=== PATIENT | female | born 1940 | race Caucasian/White ===

== ENCOUNTER → 2018-08-11 13:34 | Outpatient (BNVA) | payer MEDICARE, SELFPAY | PROVIDERS: PCP Emergency Medicine; Visit Provider Nurse Practitioner Adult Health | DX: G56.03 Carpal tunnel syndrome, bilateral upper limbs (principal); G56.23 Lesion of ulnar nerve, bilateral upper limbs; I10 Essential (primary) hypertension | CPT/HCPCS: 95911; 99203; 99214 ==

== ENCOUNTER → 2019-03-30 10:46 | Outpatient (BNVA) | payer OTHER, SELFPAY | PROVIDERS: PCP Emergency Medicine; Referring Provider Emergency Medicine; Visit Provider Orthopaedic Surgery | DX: G56.00 Carpal tunnel syndrome, unspecified upper limb (principal); G56.01 Carpal tunnel syndrome, right upper limb; M25.511 Pain in right shoulder; G89.29 Other chronic pain; I10 Essential (primary) hypertension | CPT/HCPCS: 99201; 99213 ==

== ENCOUNTER 2019-04-06 11:33 | Day surgery (SDC) | payer OTHER, SELFPAY ==
[2019-04-06 12:08] VITALS: BP 146/65; PULSE 64; RESP 16; TEMP 36.1; O2SAT 95
[2019-04-06] MEDS: Lidocaine 2% Multi-Dose 50 ML VIAL (13:16)
--- NOTE | 2019-04-06 13:48 | W.PM.DSUDISC ---
Discharge Plan Disposition Patient Disposition: HOME Condition: Improving Discharge Details Attending Provider: Demian Galdamez Primary Care Provider: Sonny Thompson Home Meds and New Rx's Prescriptions: New hydrocodone-acetaminophen 5-325 mg Tablet 1 - 2 tab PO Q4H PRN PRN (Reason: Pain) Qty: 18 RF: 0 No Action hydrochlorothiazide 25 mg tablet 25 mg PO DAILY Qty: 90 RF: 4 losartan 50 mg tablet 50 mg PO DAILY Qty: 90 RF: 3 ranitidine HCl 150 mg capsule 150 mg PO BID Qty: 180 RF: 3 acetaminophen [Tylenol Extra Strength] 500 MG tablet 2 tab PO TID PRNRF: 0 acetaminophen [Tylenol Arthritis] 650 MG tablet extended release 1 tab PO DAILY PRNRF: 0 SYSTANE 0.3-0.4% EYE DROPS 5 ML drops 1 drp Ophthalmic PRN RF: 0 clobetasol [Temovate] 30 GM cream 1 brenton Topical BID Qty: 3 RF: 4 fexofenadine 180 MG tablet 180 mg PO daily prn RF: 0 hydrocortisone [Preparation H Hydrocortisone] 26 GM cream 26 gm Topical daily prn RF: 0 lidocaine 5 GM cream 1 gm Topical BID Qty: 1 RF: 0 ascorbate calcium 500 MG tablet 500 mg PO DAILY RF: 0 cholecalciferol (vitamin D3) 1,000 unit capsule 1,000 unit PO DAILY Qty: 90 RF: 12 Discharge Instructions Additional Instructions: Keep your right hand elevated above heart level as much as possible for the next 48 hours. Exercise your fingers and thumb as comfort allows. You may loosen your wrist brace and/or the underlying emil bandage if they feel too tight. Expect some bloody drainage on the the underlying gauze bandages. For showering tomorrow, you may cover your bandages with a plastic bag and a rubber band about the forearm to keep them dry. On , 04/08/19, you may remove all of your bandages and get your stitches wet in the shower with soap and water. Gently pat the stitches dry and cover them with gauze, or extra large bandaids, or a clean fingerless cotton glove. Resume normal use as tolerated. You may go without the wrist brace as soon as you are comfrortable. Continue to exercise your fingers and thumb. Take your usual medications as before. Take tylenol , advil or aleve for milder pain. Tylenol, may be taken at the same time as aleve or at the same time as advil as they are metabolized differently and are not cross toxic. For more serious pain, take norco (hydrocodone 5/325mg) 1-2 every 4 hours. [facility] regulations limit the amount of norco to 18 tablets. Follow-up with Dr. Galdamez's office in 1 week for stitch removal. Stand Alone Forms: Reddy Kuhn (DARIANU) Equipment/Supplies: Brace Activity:: Elevate Remove Dressings/Wound Care:: 48 hours Shower/Bathe:: 48 hours Diet:: As Tolerated Discharge Orders Discharge Orders: Discharge Order (Routine); Ordered 04/06/19 Ordered By: Demian Galdamez DS: Diagnosis Discharge Diagnosis (1) Right carpal tunnel syndrome: Status: Acute
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
== END 2019-04-06 14:28 | disposition home or self-care (01) ==
PROVIDERS: PCP Emergency Medicine; Visit Provider Orthopaedic Surgery
PROC: (CPT 64721; principal; 2019-04-06 13:00)
DX: G56.01 Carpal tunnel syndrome, right upper limb (principal); M79.7 Fibromyalgia
CPT/HCPCS: 64721; L3908

== ENCOUNTER → 2019-04-16 12:42 | Outpatient (BNVA) | payer OTHER, SELFPAY | PROVIDERS: PCP Emergency Medicine; Referring Provider Emergency Medicine; Visit Provider Physical Therapy Assistant | DX: Z48.02 Encounter for removal of sutures (principal); Z47.89 Encounter for other orthopedic aftercare ==

== ENCOUNTER 2019-11-24 09:56 | Outpatient (CLI) | payer OTHER, SELFPAY ==
[2019-11-24 12:56] LABS: Anion Gap 9.3 mmol/L (3-11); BUN 22 mg/dL (7-18); CO2 30.7 mmol/L (21.0-32.0); CREATININE 1.02 mg/dL (0.55-1.02); Calcium 9.6 mg/dL (8.5-10.1); Chloride 102 mmol/L (98-107); Estimated GFR 52.28 (mL/min/1.73m2); Glucose 109 mg/dL (74-106); Potassium 3.5 mmol/L (3.5-5.1); Sodium 142 mmol/L (136-145)
== END 2019-11-24 10:16 ==
PROVIDERS: PCP Emergency Medicine; Visit Provider Emergency Medicine
DX: I10 Essential (primary) hypertension (principal)
CPT/HCPCS: 36415; 80048

== ENCOUNTER → 2019-12-07 10:08 | Outpatient (BNVA) | payer OTHER, SELFPAY | PROVIDERS: PCP Emergency Medicine; Referring Provider Emergency Medicine; Visit Provider Orthopaedic Surgery | DX: G56.01 Carpal tunnel syndrome, right upper limb (principal) | CPT/HCPCS: 99213 ==

== ENCOUNTER 2019-12-29 02:37 | Outpatient (CLI) | payer OTHER, SELFPAY ==
--- NOTE | 2019-12-29 10:52 | DI.MAMMO_ITS ---
EXAM: MAMMO SCREENING CLINICAL HISTORY: screening, Z12.39 TECHNIQUE: Mammograms were interpreted according to the usual protocol including computer analysis w [employer] CAD system, tomosynthesis and C-view imaging. COMPARISON: 2010 to 2016 FINDINGS: The breasts are composed of mainly fatty density , Breast Density category A. No suspicious masses or suspicious microcalcifications are seen. No skin thickening or abnormal axillary lymph nodes are seen. There has been no significant change from prior exams. IMPRESSION: Bi rads category 1, negative. Yearly screening mammography is recommended. Breast density category A, fatty density.
== END 2019-12-29 02:57 ==
PROVIDERS: PCP Emergency Medicine; Visit Provider Emergency Medicine
DX: Z12.31 Encounter for screening mammogram for malignant neoplasm of breast (principal)
CPT/HCPCS: 77063; 77067

== ENCOUNTER → 2020-04-12 09:33 | Outpatient (BNVA) | payer OTHER, SELFPAY | PROVIDERS: PCP Emergency Medicine; Referring Provider Emergency Medicine; Visit Provider Orthopaedic Surgery | DX: M79.601 Pain in right arm (principal); I10 Essential (primary) hypertension | CPT/HCPCS: 99214; L3809 ==

== ENCOUNTER → 2020-05-17 09:18 | Outpatient (BNVA) | payer OTHER, SELFPAY | PROVIDERS: PCP Emergency Medicine; Visit Provider Orthopaedic Surgery | DX: M79.601 Pain in right arm (principal); I10 Essential (primary) hypertension | CPT/HCPCS: 99213 ==

== ENCOUNTER 2020-06-28 11:09 | Outpatient (CLI) | payer OTHER, SELFPAY ==
[2020-06-28 12:27] LABS: Abs Immature Grans 0.04 10^3/uL (0.0-0.06); Absolute Basophil Count 0.05 10^3/uL (0.0-0.2); Absolute Eosinophil Count 0.11 10^3/uL (0.0-0.7); Absolute Lymphocyte Count 1.34 10^3/uL (1.2-3.4); Absolute Monocyte Count 0.59 10^3/uL (0.1-0.8); Absolute Neutrophil Count 4.44 10^3/uL (1.2-6.7); Basophils % 0.8; Eosinophils % 1.7; HGB 10.3 g/dL (11.2-15.7); Immature Grans % 0.6; Lymphocytes % 20.4; MCH 32.6 pg (27.0-33.0); MCHC 34.3 % (32.0-36.0); MCV 94.9 fL (80-95); MPV 10.4 fL (8.0-11.0); Neutrophils % 67.5; Nucleated RBC 0 %; Platelet Count 226 10^3/uL (130-400); RBC 3.16 10^6/uL (3.93-5.22); RDW-SD 41.2 fL; WBC 6.57 10^3/uL (4.4-10.8)
[2020-06-28 12:42] LABS: ALT 31 U/L (14-59); AST 17 U/L (15-37); Albumin 3.5 g/dL (3.4-5.0); Alkaline Phosphatase 47 U/L (46-116); Anion Gap 9.4 mmol/L (3-11); BUN 20 mg/dL (7-18); Bilirubin, Total 0.5 mg/dL (0.2-1.0); CO2 24.6 mmol/L (21.0-32.0); CREATININE 1.11 mg/dL (0.55-1.02); Calcium 8.9 mg/dL (8.5-10.1); Chloride 106 mmol/L (98-107); Estimated GFR 47.29 (mL/min/1.73m2); Glucose 132 mg/dL (74-106); Potassium 3.3 mmol/L (3.5-5.1); Sodium 140 mmol/L (136-145); TSH 1.04 uIU/mL (0.36-3.74); Total Protein 6.9 g/dL (6.4-8.2)
[2020-06-28 12:46] LABS: Hemoglobin A1C 5.8 % (<5.7)
== END 2020-06-28 11:29 ==
PROVIDERS: PCP Emergency Medicine; Visit Provider Emergency Medicine
DX: E03.9 Hypothyroidism, unspecified (principal); E11.9 Type 2 diabetes mellitus without complications; R53.83 Other fatigue
CPT/HCPCS: 36415; 80053; 83036; 84443; 85025

== ENCOUNTER 2020-07-06 01:23 | Outpatient (CLI) | payer OTHER, SELFPAY ==
--- NOTE | 2020-07-06 07:15 | DI.CT_ITS ---
EXAM: CT ABDOMEN PELVIS W CLINICAL HISTORY: Anemia, abdominal pain,weight loss,R63.4,D64.9,R10.9 TECHNIQUE: COMPARISON: CT ABD PELVIS WITH CONTRAST from 05/01/2017 FINDINGS: CT examination of the abdomen and pelvis was performed with intravenous infusion of 100 cc of Omnipaq ue 350 and ingestion of dilute barium. Images obtained through the lung bases are unremarkable. Note is made of coronary artery calcificati on. The liver and spleen are unremarkable except for splenic hilar calcification, probable healed granulo matous disease. Gallbladder appears to been surgically removed. No biliary dilatation. Unremarkabl e appearance of the pancreas. The abdominal aorta is of normal diameter. There is a heavily calcified origin of the superior mesen teric artery which appears to have a stenosis in excess of 90 percent. The remainder of the vessel i s opacified. This presumably fills via collateral circulation. Adrenals and kidneys appear normal. No urinary tract calcification or obstruction. Unremarkable brenton earance of the urinary bladder. Appendix or appendiceal stump is unremarkable. No evidence of bowel obstruction. There is marked wall thickening of the sigmoid colon. There is a small gas in fluid collection adjac ent to the proximal sigmoid colon which may represent a small chronic diverticular abscess, mild demarcus colonic fat edema noted at this site. Senior Advisor structures grossly unremarkable for age. 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 RADIATION DOSE DELIVERED: 888.18mGy.cm Total DLP
[2020-07-06] MEDS: Omnipaque 350 MG/ML 100 ML BTL IV (09:30)
[2020-07-06] MEDS: Normal Saline - Diluent 50 ML VIAL IV (09:31)
[2020-07-06] MEDS: Normal Saline Flush 10 ML SYR IVP (09:32)
== END 2020-07-06 01:43 ==
PROVIDERS: PCP Emergency Medicine; Visit Provider Emergency Medicine
DX: R10.9 Unspecified abdominal pain (principal); R63.4 Abnormal weight loss; D64.9 Anemia, unspecified
CPT/HCPCS: 74177; J3490

== ENCOUNTER → 2020-07-10 14:47 | Outpatient (BNVA) | payer OTHER, SELFPAY | PROVIDERS: PCP Emergency Medicine; Referring Provider Emergency Medicine; Visit Provider Surgery | DX: K57.20 Diverticulitis of large intestine with perforation and abscess without bleeding (principal); D64.9 Anemia, unspecified; K63.5 Polyp of colon; I10 Essential (primary) hypertension; Z11.59 Encounter for screening for other viral diseases | CPT/HCPCS: 99214 ==

== ENCOUNTER 2020-07-28 02:13 | Outpatient (CLI) | payer OTHER, SELFPAY ==
[2020-07-29 20:23] LABS: COVID-19 RT-PCR Result NEGATIVE (Negative)
== END 2020-07-28 02:33 ==
PROVIDERS: PCP Emergency Medicine; Visit Provider Surgery
DX: Z11.59 Encounter for screening for other viral diseases (principal); Z01.818 Encounter for other preprocedural examination
CPT/HCPCS: U0003

== ENCOUNTER 2020-08-01 07:31 | Day surgery (SDC) | payer OTHER, SELFPAY ==
[2020-08-01 07:30] VITALS: BP 144/68; PULSE 70; RESP 18; TEMP 36.3; O2SAT 97
[2020-08-01] MEDS: Lactated Ringers 1,000 ML 80 ML IV (08:10)
--- NOTE | 2020-08-01 08:50 | STOM_PTH ---
PATIENT: Roselyn Hartley LOC: [facility] U#:[id number] AGE/SX: 80/F ROOM: RE08/01/[address]: Ainsley Dhaliwal MD : [id number] BED: DIS: 08/01/2020 SPEC #: [id number] RECD: 08/01/20 12:34 STATUS: VIKTORIYA REQ #: [id number] PATRICIO: 08/01/20 08:[address]: Ainsley Dhaliwal DEPT: Surgical Specimen RECD BY: Ghazal Grayson ENTERED: 08/01/20 12:35 SP TYPE: STOMACH OTHR DR: Sonny Thompson DO Tissues: 1 - BIOPSY BOWEL 2 - STOMACH BIOPSY Procedures: GROSS AND MICRO LEVEL 4 Comments: [id number]
--- NOTE | 2020-08-01 09:34 | PDOC.DSDIS_ITS ---
Discharge Plan Disposition Patient Disposition: HOME Condition: Good Discharge Details Reason For Visit: EGD, Colonoscopy Attending Provider: Ainsley Dhaliwal Primary Care Provider: Sonny Thompson Home Meds and New Rx's Prescriptions: Continued tramadol 50 mg tablet 50 mg PO DAILY PRN (Reason: pain) Qty: 30 RF: 0 naproxen sodium [Aleve] 220 mg capsule 220 mg PO BID PRNRF: 0 meloxicam 15 mg tablet 15 mg PO DAILY Qty: 30 RF: 0 acetaminophen [Tylenol Extra Strength] 500 MG tablet 2 tab PO TID PRNRF: 0 acetaminophen [Tylenol Arthritis] 650 MG tablet extended release 1 tab PO DAILY PRNRF: 0 SYSTANE 0.3-0.4% EYE DROPS 5 ML drops 1 drp Ophthalmic PRN RF: 0 clobetasol [Temovate] 30 GM cream 1 brenton Topical BID PRNQty: 3 RF: 4 fexofenadine 180 MG tablet 180 mg PO daily prn RF: 0 hydrocortisone [Preparation H Hydrocortisone] 26 GM cream 26 gm Topical daily prn RF: 0 lidocaine 5 GM cream 1 gm Topical BID Qty: 1 RF: 0 ascorbate calcium (vitamin C) 500 MG tablet 500 mg PO DAILY RF: 0 cholecalciferol (vitamin D3) 25 mcg (1,000 unit) capsule 1,000 unit PO DAILY Qty: 90 RF: 12 spironolactone 25 mg tablet 25 mg PO DAILY Qty: 90 RF: 3 Hold Instructions: Home Medication placed on hold at Doctor's office losartan 100 mg tablet 100 mg PO DAILY Qty: 90 RF: 3 Discontinued bisacodyl [Dulcolax (bisacodyl)] 5 mg tablet,delayed release (DR/EC) 5 mg PO ONCE Qty: 4 RF: 0 polyethylene glycol 3350 17 gram/dose powder 17 g PO ONCE Qty: 238 RF: 0 Discharge Instructions Additional Instructions: Findings: Your upper endoscopy looked normal. The colonoscopy showed dive rticulosis with mild inflammation. Follow up: Due to a history of polyps, consider a colonoscopy in 5 years depending on overall health. Please call if you develop: fevers >101.5 Nausea or Vomiting Abdominal pain that is not transient DAY SURGERY UNIT POST COLONOSCOPY INSTRUCTIONS 1. Because there will be medication in your system for the next 24 hours, you may feel a little sleepy. Your coordination will be affected. Therefore: a. Do not drive or operate dangerous equipment for 24 hours. b. Do not drink alcohol beverages for 24 hours (not even beer). c. Plan to go home and rest for the day. 2. Generally there are no restrictions on your activity after a day or so has gone by, but you may feel a bit fatigued for a few days. 3 After you arrive home you may have a light meal and return to a normal diet as you can tolerate it without feeling sick to your stomach. 4. After surgery, you may feel pain or discomfort. This should be only transient, but if it persists please contact your doctor. 5. If there are any questions regarding the findings of your procedure, please feel free to contact your doctor. 6. If you are unable to contact your doctor with a problem, contact the hospital at [phone]. 7. Continue all your regular medications unless directed otherwise. I understand the above instructions and have no questions. Signature of Patient or Responsible Adult Escort Date/Time Name of Responsible Adult Escort Signature of Nurse Date/Time Activity:: Activity as Tolerated Diet:: As Tolerated Discharge Orders Discharge Orders: Discharge Order (Routine); Ordered 08/01/20 Ordered By: Ainsley Dhaliwal DS: Diagnosis Discharge Diagnosis (1) Diverticulosis: Status: Acute
[2020-08-01 10:10] VITALS: BP 142/60; PULSE 53; RESP 18; TEMP 36.4; O2SAT 96
--- NOTE | 2020-08-01 12:59 | W.COLOREPORT ---
Colonoscopy Report Date of procedure: 08/01/20 Pre-op diagnosis general: Anemia, abnormal abdominal CT, history of colon polyp Post-op diagnosis procedure note: other (Normal EGD, diverticulosis) Procedure: EGD with duodenal and gastric biopsy Colonoscopy Surgeon: Ainsley Dhaliwal Anesthesia proc note operative: MAC Indications: Was recently on prednisone for an orthopedic issue. Noted some lower abdominal discomfort with lifting. HgB 10.3. WBC normal. CT scan done and showed diverticulosis with possible small chronic perforation. February 2018 had colonoscopy showing a sessile serrated adenoma and diverticulosis. No FH colon cancer. Procedure Description: The patient was placed in the left lateral position and propofol titrated to sedation. The endoscope was advanced into the esophagus under direct visualization. The scope was passed through the stomach and into the duodenum. There was no duodenitis or ulceration noted. Biopsies were taken from the second portion of the duodenum to evaluate for celiac disease. The stomach itself was normal including on retroflexed view of the fundus and lesser curvature. Routine biopsies were taken from the gastric antrum. The GE junction was inspected and showed no significant stricture, inflammation, masses or Barretts. The scope was slowly withdrawn with no other esophageal lesions found. Digital rectal examination revealed no abnormalities. The scope was advanced to the cecum without difficulty. The ileocecal valve and appendiceal orifice were clearly identified. The prep was good. The scope was slowly withdrawn over the course of greater than 6 minutes with no abnormalities seen in the ascending, transverse, descending colon. In the sigmoid region she had moderate diverticulosis with some mucosal edema/mild erythema around 20cm. The rectum was normal including on retroflexed view. The patient tolerated the procedure well and was stable to recovery. The area of inflammation is fairly mild, so I would not treat for diverticulitis unless she has symptoms. Consider follow up colonoscopy in 5 years due to history of polyps, depending on overall health.
== END 2020-08-01 10:45 | disposition home or self-care (01) ==
PROVIDERS: PCP Emergency Medicine; Visit Provider Surgery
PROC: (CPT 43239; principal; 2020-08-01 08:15)
DX: R93.3 Abnormal findings on diagnostic imaging of other parts of digestive tract (principal); D64.9 Anemia, unspecified; Z86.010 Personal history of colon polyps; R10.13 Epigastric pain; K57.30 Diverticulosis of large intestine without perforation or abscess without bleeding
CPT/HCPCS: 43239; 45378; 88305

== ENCOUNTER 2020-08-09 13:27 | Outpatient (REF) | payer OTHER, SELFPAY ==
[2020-08-09 13:07] LABS: Abs Immature Grans 0.01 10^3/uL (0.0-0.06); Absolute Basophil Count 0.03 10^3/uL (0.0-0.2); Absolute Eosinophil Count 0.18 10^3/uL (0.0-0.7); Absolute Lymphocyte Count 1.16 10^3/uL (1.2-3.4); Absolute Monocyte Count 0.47 10^3/uL (0.1-0.8); Absolute Neutrophil Count 2.35 10^3/uL (1.2-6.7); Basophils % 0.7; Eosinophils % 4.3; HCT 32.2 % (36.0-46.0); Immature Grans % 0.2; Lymphocytes % 27.6; MCH 33.5 pg (27.0-33.0); MCHC 34.2 % (32.0-36.0); MCV 98.2 fL (80-95); MPV 11.2 fL (8.0-11.0); Monocytes % 11.2; Nucleated RBC 0 %; Platelet Count 150 10^3/uL (130-400); RBC 3.28 10^6/uL (3.93-5.22); RDW 12.1 % (11.7-14.6); RDW-SD 43.7 fL
[2020-08-09 13:15] LABS: Iron 94 ug/dL (50-170); Total Iron Binding Capacity 300 ug/dL (250-450); Transferrin Sat 31 % (15-50)
[2020-08-09 13:30] LABS: Ferritin 431 ng/mL (8-252)
[2020-08-09 13:38] LABS: C-Reactive Protein 0.25 mg/dL (0.0-0.3)
== END 2020-08-09 13:47 ==
LOC: LBN 13:27
PROVIDERS: PCP Emergency Medicine; Visit Provider Emergency Medicine
DX: K57.90 Diverticulosis of intestine, part unspecified, without perforation or abscess without bleeding (principal); D64.9 Anemia, unspecified
CPT/HCPCS: 82728; 83540; 83550; 85025; 86140

== ENCOUNTER 2020-10-27 03:43 | Outpatient (CLI) | payer OTHER, SELFPAY ==
[2020-10-27 09:39] LABS: Abs Immature Grans 0.01 10^3/uL (0.0-0.06); Absolute Basophil Count 0.03 10^3/uL (0.0-0.2); Absolute Lymphocyte Count 1.19 10^3/uL (1.2-3.4); Absolute Monocyte Count 0.47 10^3/uL (0.1-0.8); Absolute Neutrophil Count 2.48 10^3/uL (1.2-6.7); Basophils % 0.7; Eosinophils % 4.6; HCT 34.1 % (36.0-46.0); HGB 11.4 g/dL (11.2-15.7); Immature Grans % 0.2; Lymphocytes % 27.2; MCH 32.1 pg (27.0-33.0); MCHC 33.4 % (32.0-36.0); MCV 96.1 fL (80-95); Monocytes % 10.7; Neutrophils % 56.6; Nucleated RBC 0 %; Platelet Count 140 10^3/uL (130-400); RBC 3.55 10^6/uL (3.93-5.22); RDW 11.9 % (11.7-14.6); RDW-SD 41.9 fL; WBC 4.38 10^3/uL (4.4-10.8)
== END 2020-10-27 04:03 ==
PROVIDERS: PCP Emergency Medicine; Visit Provider Emergency Medicine
DX: D64.9 Anemia, unspecified (principal)
CPT/HCPCS: 36415; 85025

== ENCOUNTER 2020-11-20 16:49 | Emergency (ER) | payer OTHER, SELFPAY ==
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
[2020-11-20 17:02] VITALS: BP 197/66; PULSE 79; RESP 16; TEMP 36.7; O2SAT 97
--- NOTE | 2020-11-20 17:15 | DI.CT_ITS ---
EXAM: CT ABDOMEN PELVIS CTA CLINICAL HISTORY: lower abd pain, s/p SMA stent. TECHNIQUE: Imaging Protocol: Axial CT angiography was performed with multi-slice acquisition and m ulti-planar and/or 3D reconstructions. CONTRAST MATERIAL: Intravenous: Omnipaque 350 Contrast volume:72 mL Oral: No COMPARISON: CT CT ABDOMEN PELVIS W from 07/06/2020 FINDINGS: ABDOMEN AND PELVIS: Abdomen: Celiac axis/mesenteric arteries: No evidence of occlusion or significant stenosis. The superior mese nteric artery stent is patent. Renal Arteries: No evidence of occlusion or significant stenosis. Aorta: No evidence of occlusion or significant stenosis. No aneurysm or dissection. Atherosclerosi s. Pelvis: Iliac Arteries: No evidence of occlusion or significant stenosis. Common Femoral Arteries: No evidence of occlusion or significant stenosis. ABDOMEN: Lung bases: Scarring or atelectasis in the lung bases. Liver: Fatty infiltration of the liver. No measurable mass. Portal, Superior Mesenteric, and Splenic Veins: Unremarkable. Gallbladder and Biliary Tract: Status post cholecystectomy. No biliary ductal dilatation. Pancreas: Normal density, no abnormal calcifications or inflammatory process. Spleen: Normal. Adrenals: No masses seen. Kidneys: Normal size, contour and axis. No radiodense stones or obstructive uropathy. No masses seen. Bowel: No obstruction or bowel wall thickening. No evidence of acute appendicitis. There is divertic ulosis of the colon predominantly involving the descending and sigmoid colon. No definite evidence o f acute diverticulitis. Peritoneal Cavity: No ascites, collection or mesenteric inflammatory response. No free air. Lymph Nodes: Within normal limits. Bones: Degenerative changes in the spine. Soft Tissues: Unremarkable. PELVIS: Bladder: Symmetric distention, no gross wall thickening. Reproductive Organs: Unremarkable as visualized. Lymph Nodes: Within normal limits. Bones: Within normal limits. IMPRESSION: 1. Patent SMA stent. 2. No evidence of arterial occlusion or significant stenosis. 3. Colonic diverticulosis but no evidence of acute diverticulitis. RADIATION DOSE DELIVERED: 701.77mGy.cm Total DLP 701.77mGy.cm Total DLP DATA REPOSITORY: All CT scans at this facility are submitted to the National Radiology Data Registry (NRDR) Dose Index Registry (DIR) with the [employer] ([employer]). RADIATION OPTIMIZATION: All CT scans at this facility use at least one of these dose optimization te chniques: automated exposure control; mA and/or kV adjustment per patient size (includes targeted exa ms where dose is matched to clinical indication); or iterative reconstruction.
[2020-11-20 17:53] LABS: Abs Immature Grans 0.03 10^3/uL (0.0-0.06); Absolute Basophil Count 0.02 10^3/uL (0.0-0.2); Absolute Eosinophil Count 0.07 10^3/uL (0.0-0.7); Absolute Lymphocyte Count 1.22 10^3/uL (1.2-3.4); Absolute Monocyte Count 0.76 10^3/uL (0.1-0.8); Absolute Neutrophil Count 6.74 10^3/uL (1.2-6.7); Basophils % 0.2; Eosinophils % 0.8; HCT 34.7 % (36.0-46.0); Immature Grans % 0.3; Lymphocytes % 13.8; MCH 32.3 pg (27.0-33.0); MCHC 34.6 % (32.0-36.0); MCV 93.3 fL (80-95); MPV 9.9 fL (8.0-11.0); Monocytes % 8.6; Neutrophils % 76.3; Nucleated RBC 0 %; Platelet Count 158 10^3/uL (130-400); RBC 3.72 10^6/uL (3.93-5.22); RDW 11.7 % (11.7-14.6); RDW-SD 39.6 fL; WBC 8.84 10^3/uL (4.4-10.8)
[2020-11-20] MEDS: Normal Saline 500 ML IV (17:55)
[2020-11-20] MEDS: ACETAMINOPHEN 1,000 MG/100 ML BTL 400 MG IVPB (17:55)
[2020-11-20 17:56] LABS: Bilirubin Negative (Negative); Blood Small (Negative); Clarity Clear (Clear); Glucose Negative (Negative); Ketones Negative (Negative); Leukocyte Esterase Negative (Negative); Nitrite Negative (Negative); Specific Gravity 1.025 (1.005-1.025)
[2020-11-20 17:56] LABS: Lactate 1.5 mmol/L (0.6-1.4)
[2020-11-20 18:05] LABS: Bacteria Negative HPF (Negative); C & S Indicated? No; Casts Negative LPF (Negative); Crystals Negative HPF (Negative); Epithelial Cells Few HPF (Negative); Mucus Negative (Negative)
[2020-11-20 18:06] LABS: INR 1.1 (0.9-1.1); PTT Activated 23.9 sec (21.0-27.5); Prothrombin Time 10.6 sec (9.3-11.0)
[2020-11-20 18:22] LABS: ALT 19 U/L (14-59); AST 15 U/L (15-37); Albumin 3.9 g/dL (3.4-5.0); Alkaline Phosphatase 58 U/L (46-116); Anion Gap 9.4 mmol/L (3-11); BUN 12 mg/dL (7-18); Bilirubin, Total 0.9 mg/dL (0.2-1.0); CO2 28.6 mmol/L (21.0-32.0); Calcium 9.4 mg/dL (8.5-10.1); Chloride 102 mmol/L (98-107); Estimated GFR 53.35 (mL/min/1.73m2); Glucose 137 mg/dL (74-106); Lipase 117 U/L (73-393); Magnesium 1.8 mg/dL (1.8-2.4); Potassium 3.4 mmol/L (3.5-5.1); Sodium 140 mmol/L (136-145)
[2020-11-20 18:23] LABS: Troponin I < 0.05 ng/mL (<0.06)
[2020-11-20] MEDS: Omnipaque 350 MG/ML 100 ML BTL IJ (18:55)
[2020-11-20] MEDS: Normal Saline - Diluent 50 ML VIAL IV (18:56)
--- NOTE | 2020-11-20 19:14 | DI.VRAD_ITS ---
PROCEDURE INFORMATION: Exam: CT Angiography Abdomen and Pelvis With Contrast Exam date and time: 11/20/2020 5:31 PM Age: 80 years old Clinical indication: Abdominal pain; Localized; Patient HX: Lower abd pain, S/P sma stent; Additional info: R/O occlusion, sbo TECHNIQUE: Imaging protocol: Computed tomographic angiography of the abdomen and pelvis with contrast material. 3D rendering (Not supervised by radiologist): MIP and/or 3D reconstructed images were created by the technologist. COMPARISON: CT ABDOMEN PELVIS W 07/06/2020 9:35 AM FINDINGS: Lungs: There is minimal bibasilar atelectasis. Aorta: No aortic aneurysm. No aortic dissection. Celiac trunk and mesenteric arteries: No occlusion or significant stenosis. SMA stent appears patent. Renal arteries: Renal artery aneurysm measuring 8 mm. Right iliac arteries: No occlusion or significant stenosis. Left iliac arteries: No occlusion or significant stenosis. Liver: There is hepatomegaly and fatty infiltration of the liver. Gallbladder and bile ducts: Unremarkable. No calcified stones. No ductal dilation. Pancreas: Mild peripancreatic fat stranding, correlate clinically for acute pancreatitis. Spleen: Unremarkable. No splenomegaly. Adrenal glands: Unremarkable. No mass. Kidneys and ureters: Unremarkable. No solid mass. No hydronephrosis. Stomach and bowel: There is diverticular disease of the colon, without evidence of acute diverticulitis. No perforation, or abscess. No signs or history of bleeding provided. Appendix: No evidence of appendicitis. Intraperitoneal space: Unremarkable. No free air. No significant fluid collection. Lymph nodes: Unremarkable. No enlarged lymph nodes. Urinary bladder: Unremarkable. No mass. Reproductive: Unremarkable as visualized. Bones/joints: No acute fracture. No dislocation. Grade 1 anterolisthesis at L4-L5 on the basis of advanced facet arthritis. Soft tissues: Unremarkable. IMPRESSION: No acute abnormality. The SMA stent appears patent without occlusion or stenosis. Question acute pancreatitis.Clinical and laboratory correlation recommended. Dictated and Authenticated by: Inna Whitney MD. Ordering:KIRT Hassan MD
[2020-11-20 19:41] VITALS: BP 192/73; PULSE 64; RESP 14; TEMP 36.4; O2SAT 97
[2020-11-20] MEDS: Ondansetron 4 MG/2 ML VIAL IVP (19:44)
[2020-11-20 20:39] VITALS: BP 173/68; PULSE 69; RESP 16; TEMP 36.7; O2SAT 96
== END 2020-11-20 20:53 | disposition home or self-care (01) ==
PROVIDERS: Emergency Provider Physician Assistant; PCP Emergency Medicine
DX: K55.1 Chronic vascular disorders of intestine (principal); R11.0 Nausea; R10.30 Lower abdominal pain, unspecified; G89.18 Other acute postprocedural pain; Y83.1 Surgical operation with implant of artificial internal device as the cause of abnormal reaction of the patient, or of later complication, without mention of misadventure at the time of the procedure; Z95.828 Presence of other vascular implants and grafts
CPT/HCPCS: 36415; 80053; 83690; 96361; 96374; 96375; 99285; 74174; 81003; 81015; 83605; 83735; 84484; 85025; 85610; 85730; J0131; J2405; J3490

== ENCOUNTER 2021-04-17 16:28 | Outpatient (REF) | payer OTHER, SELFPAY ==
[2021-04-17 18:07] LABS: Anion Gap 10.8 mmol/L (3-11); BUN 31 mg/dL (7-18); CO2 26.2 mmol/L (21.0-32.0); CREATININE 1.5 mg/dL (0.55-1.02); Calcium 9.3 mg/dL (8.5-10.1); Chloride 108 mmol/L (98-107); Estimated GFR 33.33 (mL/min/1.73m2); Glucose 142 mg/dL (74-106); Potassium 4.2 mmol/L (3.5-5.1); Sodium 145 mmol/L (136-145)
== END 2021-04-17 16:29 | disposition home or self-care (01) ==
LOC: LBN 16:28
PROVIDERS: PCP Emergency Medicine; Visit Provider Emergency Medicine
DX: I10 Essential (primary) hypertension (principal)
CPT/HCPCS: 80048

== ENCOUNTER 2021-04-30 03:20 | Outpatient (CLI) | payer OTHER, SELFPAY ==
[2021-04-30 12:12] LABS: Hemoglobin A1C 5.5 % (<5.7)
[2021-04-30 12:14] LABS: COMMENT (LAB VIEW ONLY) 37.18 mg/dL; Microalb ug/mg Crea 4.6 ug/mg Cr
[2021-04-30 13:11] LABS: Anion Gap 9.2 mmol/L (3-11); BUN 25 mg/dL (7-18); CO2 26.8 mmol/L (21.0-32.0); CREATININE 1.3 mg/dL (0.55-1.02); Calcium 9.5 mg/dL (8.5-10.1); Chloride 107 mmol/L (98-107); Estimated GFR 39.31 (mL/min/1.73m2); Glucose 104 mg/dL (74-106); Potassium 4.2 mmol/L (3.5-5.1); Sodium 143 mmol/L (136-145)
== END 2021-04-30 03:21 | disposition home or self-care (01) ==
LOC: LBO 03:20
PROVIDERS: PCP Emergency Medicine; Visit Provider Emergency Medicine
DX: I10 Essential (primary) hypertension (principal); E11.9 Type 2 diabetes mellitus without complications
CPT/HCPCS: 36415; 80048; 82043; 82570; 83036

== ENCOUNTER 2021-07-04 14:30 | Outpatient (CLI) | payer OTHER, SELFPAY ==
--- NOTE | 2021-07-04 14:00 | DI.RAD_ITS ---
Exam(s) XR SHOULDER RT COMPLETE 2+V EXAM: XR SHOULDER RT COMPLETE 2+V CLINICAL HISTORY: right shoulder pain. TECHNIQUE: 2D digital imaging was performed. COMPARISON: No exams were available for comparison FINDINGS: There are hypertrophic changes at the glenohumeral and acromioclavicular joints. Mild hypertrophic c hanges are seen at the lateral acromion. The bones are intact and normally mineralized. The soft ti ssues are unremarkable. IMPRESSION: Degenerative changes of the right shoulder. DATA REPOSITORY: RADIATION DOSE DELIVERED:
== END 2021-07-04 14:31 | disposition home or self-care (01) ==
LOC: DIORS 14:30
PROVIDERS: PCP Emergency Medicine; Referring Provider Emergency Medicine; Visit Provider Student in an Organized Health Care Education/Training Program
DX: M25.511 Pain in right shoulder (principal); M19.011 Primary osteoarthritis, right shoulder
CPT/HCPCS: 99203; 99213; 73030

== ENCOUNTER 2021-08-07 15:18 | Outpatient (REF) | payer OTHER, SELFPAY ==
[2021-08-07 18:24] LABS: Anion Gap 8.3 mmol/L (3-11); BUN 32 mg/dL (7-18); CO2 26.7 mmol/L (21.0-32.0); CREATININE 1.5 mg/dL (0.55-1.02); Calcium 9.2 mg/dL (8.5-10.1); Chloride 109 mmol/L (98-107); Estimated GFR 33.33 (mL/min/1.73m2); Glucose 111 mg/dL (74-106); Potassium 4.4 mmol/L (3.5-5.1); Sodium 144 mmol/L (136-145)
== END 2021-08-07 15:19 | disposition home or self-care (01) ==
LOC: LBN 15:18
PROVIDERS: PCP Emergency Medicine; Visit Provider Emergency Medicine
DX: I10 Essential (primary) hypertension (principal)
CPT/HCPCS: 80048

== ENCOUNTER 2021-08-24 02:44 | Outpatient (CLI) | payer OTHER, SELFPAY ==
--- NOTE | 2021-08-24 07:45 | DI.US_ITS ---
APPROVED REPORT EXAM: Comprehensive 2D, Doppler, and color-flow Echocardiogram Patient Location: Out-Patient Special Education Coordinator: Opal Aguilar RDCS (AE) Indications: aortic heart murmur, Non rheumatic aortic valve disorder Other Information Study Quality: Adequate Conclusion Mild concentric left ventricular hypertrophy. Estimated ejection fraction is 60%. Wall motion is no rmal Normal right ventricular size and systolic function Both atria are normal in size Aortic valve is trileaflet and sclerotic. There is no aortic stenosis. There is mild aortic regurgi tation Mild mitral annular calcification. Trace mitral regurgitation Normal tricuspid valve with trace regurgitation. Estimated right ventricular systolic pressure is no rmal at 23 mmHg Wall motion Left Ventricle The left ventricle is normal size. The left ventricular systolic function is normal. The left ventric ular ejection fraction is within the normal range. Mild concentric left ventricular hypertrophy. Ther e is normal LV segmental wall motion. There is no ventricular septal defect visualized. LVEF is 60%. Right Ventricle The right ventricle is normal size. The right ventricular systolic function is normal. The RVSP is 23 .5 mmHg. Atria The left atrium size is normal. The right atrium size is normal. The interatrial septum is intact wit h no evidence for an atrial septal defect. Aortic Valve Aortic valve is calcified. Aortic valve is trileaflet. No hemodynamically significant valvular aortic stenosis. Mild aortic regurgitation. Mitral Valve Mild mitral annular calcification. No evidence of mitral valve stenosis. Trace mitral regurgitation. Tricuspid Valve The tricuspid valve is normal in structure. There is no tricuspid valve stenosis. Trace tricuspid reg urgitation. Pulmonic Valve The pulmonary valve is normal in structure. There is no pulmonic valvular stenosis. There is no pulmo fish valvular regurgitation. Great Vessels The aortic root is normal in size. The ascending aorta is normal in size. Aortic arch is not well vis ualized. IVC is normal in size and collapses >50% with inspiration. Pericardium There is no pericardial effusion. 2D Dimensions IVSD d PLAX 1.13 cm F: 0.6-1.0 LV Vol A2C d MOD 74.5 mL LVPW d PLAX 1.10 cm F: 0.6 - 1.0 LV Vol A4C d MOD 84.9 mL LVID d PLAX 4.32 cm F: 3.8 - 5.2 LA vol/ BSA A2C s A-L 26.8 mL/m2 LVDs 2.95 cm F: 2.2 - 3.5 LA vol/ BSA A4C s A-L 18.6 mL/m2 Ao Root d 2.60 cm F: 2.7 - 3.3 LA Vol/ BSA Biplane s A-L 23.9 mL/m2 RA Area A4C 10.96 cm2 LA Area A4C s MOD 14.40 cm2 RA Vol/ BSA A4C s A-L 12.6 mL/m2 LA Area A2C s MOD 16.12 cm2 Ao Asc Diam d 3.19 cm F: 2.3 - 3.1 LV EF A4C MOD 58.6 % LV EF Teichholz 59.2 % LV EF A2C MOD 57.2 % LVEF (Newton's) 58.37 % F: 54 - 74 LV EF Biplane MOD 58.4 % LV Volume 63.58 mL F: 46 - 106 SV 47.64 mL LV Volume Index 35.51 mL/m2 F: 29 - 61 SV Index 26.57 mL/m2 LV Vol Biplane MOD 81.6 mL FS 31.15 % M-Mode TAPSE 1.59 cm (M/F) >1.7 LV Diastology MV E' medial 0.091 (>0.07 m/s) E/A Ratio 0.7 LV E/e MED 8.75 (<14) MV E Vmax 0.80 (0.4-1.3 m/s) MV E' lateral 0.051 (>0.1 m/s) MV A Vmax 1.20 (0.4-1.3 m/s) LV E/e LAT 15.85 (<14) MV E/A Ratio 0.66 MV E/E' medial 8.79 MV E/E' lateral 15.87 Aortic Valve LVOT Area 2.82 cm2 AoV Area Vmax 1.89 cm2 LVOT Vmax 1.33 m/s AoV Area/ BSA (Vmax) 1.05 cm2/m2 LVOT Mean Kelechi. 0.89 m/s LORENE Mean Kelechi. 1.76 cm2 LVOT Peak Grad 7.1 mmHg LORENE Mean Kelechi. Index 0.98 cm2/m2 LVOT Mean Grad 3.7 mmHg LVOT VTI 0.310 m LVOT Diam s 1.85 cm AoV Vmax 1.99 m/s Velocity Ratio 0.66 AoV Mean Kelechi. 1.42 m/s AoV Peak Grad 15.8 mmHg LVOT SV 87.30 mL AoV Mean Grad 9.0 mmHg AoV VTI 0.415 m AoV Area VTI 2.10 cm2 AoV Area/ BSA (VTI) 1.17 cm/m2 Mitral Valve MV DT 286 (160-240 msec) MV PHT 83 msec MV Area PHT 2.65 cm2 MV VTI 0.450 m MV Area VTI 1.94 (4.0-6.0 cm2) Pulmonary Valve PV Vmax 1.25 (0.5-1.5 m/s) RVOT Peak Gr. 4.79 mmHg PV Peak Grad 6.3 mmHg RVOT Mean Gr. 2.70 mmHg PV Mean Grad 3.4 mmHg RVOT VTI 0.252 m PV VTI 0.289 m RVOT Vmax 1.09 m/s Tricuspid Valve TR Peak Grad 20.4 mmHg TR Vmax 2.26 m/s RA Pressure 3.00 mmHg RVSP (TR) 23.5 mmHg
== END 2021-08-24 03:04 ==
PROVIDERS: PCP Emergency Medicine; Visit Provider Emergency Medicine
DX: I35.1 Nonrheumatic aortic (valve) insufficiency (principal); I35.8 Other nonrheumatic aortic valve disorders
CPT/HCPCS: 93306

== ENCOUNTER 2022-02-13 04:34 | Outpatient (CLI) | payer MEDICARE, SELFPAY ==
[2022-02-13 10:08] LABS: HCT 30.7 % (36.0-46.0); MCH 31.3 pg (27.0-33.0); MCHC 32.6 % (32.0-36.0); MCV 95.9 fL (80-95); MPV 9.6 fL (8.0-11.0); Platelet Count 144 10^3/uL (130-400); RDW 12.6 % (11.7-14.6); RDW-SD 44.3 fL; WBC 5.36 10^3/uL (4.4-10.8)
[2022-02-13 10:51] LABS: Anion Gap 6.4 mmol/L (3-11); BUN 25 mg/dL (7-18); CO2 27.6 mmol/L (21.0-32.0); CREATININE 1.2 mg/dL (0.55-1.02); Chloride 108 mmol/L (98-107); Estimated GFR 43.01 (mL/min/1.73m2); Glucose 106 mg/dL (74-106); Potassium 4.3 mmol/L (3.5-5.1); Sodium 142 mmol/L (136-145)
== END 2022-02-13 04:35 | disposition home or self-care (01) ==
LOC: LBO 04:35
PROVIDERS: PCP Nurse Practitioner Family; Visit Provider Emergency Medicine
DX: I10 Essential (primary) hypertension (principal)
CPT/HCPCS: 36415; 80048; 85027

== ENCOUNTER 2023-01-27 10:48 | Outpatient (REF) | payer MEDICARE, SELFPAY ==
[2023-01-27 12:35] LABS: Abs Immature Grans 0.01 10^3/uL (0.0-0.06); Absolute Basophil Count 0.04 10^3/uL (0.0-0.2); Absolute Eosinophil Count 0.17 10^3/uL (0.0-0.7); Absolute Lymphocyte Count 1.42 10^3/uL (1.2-3.4); Absolute Monocyte Count 0.53 10^3/uL (0.1-0.8); Absolute Neutrophil Count 3.76 10^3/uL (1.2-6.7); Basophils % 0.7; Eosinophils % 2.9; HGB 8.4 g/dL (11.2-15.7); Immature Grans % 0.2; Lymphocytes % 23.9; MCH 28.8 pg (27.0-33.0); MCHC 32.3 % (32.0-36.0); MCV 89 fL (80-95); MPV 9.5 fL (8.0-11.0); Monocytes % 8.9; Neutrophils % 63.4; Platelet Count 195 10^3/uL (130-400); RBC 2.92 10^6/uL (3.93-5.22); RDW 13.2 % (11.7-14.6); WBC 5.93 10^3/uL (4.4-10.8)
[2023-01-27 13:11] LABS: Iron 31 ug/dL (50-170); Total Iron Binding Capacity 415 ug/dL (250-450); Transferrin Sat 7 % (15-50)
[2023-01-27 13:13] LABS: ALT 16 U/L (14-59); AST 12 U/L (15-37); Albumin 3.2 g/dL (3.4-5.0); Alkaline Phosphatase 70 U/L (46-116); Anion Gap 7.4 mmol/L (3-11); BUN 19 mg/dL (7-18); Bilirubin, Total 0.3 mg/dL (0.2-1.0); C-Reactive Protein 0.21 mg/dL (0.0-0.3); CO2 26.6 mmol/L (21.0-32.0); CREATININE 1.2 mg/dL (0.55-1.02); Calcium 9.1 mg/dL (8.5-10.1); Chloride 106 mmol/L (98-107); Estimated GFR 44.91 (mL/min/1.73m2); Glucose 100 mg/dL (74-106); Potassium 3.9 mmol/L (3.5-5.1); Sodium 140 mmol/L (136-145); TSH (W/Ref FT4) 1.72 uIU/mL (0.36-3.74); Total Protein 6.9 g/dL (6.4-8.2)
[2023-01-27 13:50] LABS: Ferritin 17 ng/mL (8-252); Vitamin B12 449 pg/mL (193-986)
== END 2023-01-27 10:49 | disposition home or self-care (01) ==
LOC: SUO 10:48
PROVIDERS: PCP Nurse Practitioner Family; Referring Provider Nurse Practitioner Family; Visit Provider Surgery
DX: R10.9 Unspecified abdominal pain (principal); R01.1 Cardiac murmur, unspecified; K76.0 Fatty (change of) liver, not elsewhere classified; D12.6 Benign neoplasm of colon, unspecified; I10 Essential (primary) hypertension; R63.4 Abnormal weight loss; I70.90 Unspecified atherosclerosis; K57.20 Diverticulitis of large intestine with perforation and abscess without bleeding; M79.2 Neuralgia and neuritis, unspecified; Z80.3 Family history of malignant neoplasm of breast
CPT/HCPCS: 36415; 80053; 99213; 82607; 82728; 82746; 83540; 83550; 84443; 85025; 86140

== ENCOUNTER → 2023-04-10 11:01 | Outpatient (BNVA) | payer MEDICARE, SELFPAY | PROVIDERS: PCP Nurse Practitioner Family; Referring Provider Nurse Practitioner Family; Visit Provider Surgery | DX: R19.8 Other specified symptoms and signs involving the digestive system and abdomen (principal); D50.9 Iron deficiency anemia, unspecified | CPT/HCPCS: 36415; 99213; 99215 ==

== ENCOUNTER 2023-04-10 11:37 | Outpatient (REF) | payer MEDICARE, SELFPAY ==
[2023-04-10 12:41] LABS: Abs Immature Grans 0.03 10^3/uL (0.0-0.06); Absolute Basophil Count 0.04 10^3/uL (0.0-0.2); Absolute Eosinophil Count 0.19 10^3/uL (0.0-0.7); Absolute Lymphocyte Count 1.14 10^3/uL (1.2-3.4); Absolute Monocyte Count 0.44 10^3/uL (0.1-0.8); Absolute Neutrophil Count 4.15 10^3/uL (1.2-6.7); Basophils % 0.7; Eosinophils % 3.2; HCT 24.6 % (36.0-46.0); HGB 7.9 g/dL (11.2-15.7); Immature Grans % 0.5; MCHC 32.1 % (32.0-36.0); MCV 87 fL (80-95); MPV 9.4 fL (8.0-11.0); Monocytes % 7.3; Neutrophils % 69.3; Platelet Count 236 10^3/uL (130-400); RBC 2.82 10^6/uL (3.93-5.22); RDW 15.9 % (11.7-14.6); RDW-SD 50.8 fL; WBC 5.99 10^3/uL (4.4-10.8)
[2023-04-10 13:18] LABS: Iron 30 ug/dL (50-170); Total Iron Binding Capacity 359 ug/dL (250-450); Transferrin Sat 8 % (15-50)
[2023-04-10 13:31] LABS: Ferritin 41 ng/mL (8-252)
[2023-04-11 09:15] LABS: Transferrin 292 mg/dL (201-352)
== END 2023-04-10 11:38 | disposition home or self-care (01) ==
LOC: LBN 11:37
PROVIDERS: PCP Nurse Practitioner Family; Visit Provider Surgery
DX: D64.9 Anemia, unspecified (principal); K76.0 Fatty (change of) liver, not elsewhere classified; D50.9 Iron deficiency anemia, unspecified; D62 Acute posthemorrhagic anemia; I10 Essential (primary) hypertension; R19.8 Other specified symptoms and signs involving the digestive system and abdomen; R63.4 Abnormal weight loss
CPT/HCPCS: 85027; 82728; 83540; 83550; 84466; 85025

== ENCOUNTER 2023-04-11 00:07 | Outpatient (RCR) | payer MEDICARE, SELFPAY ==
[2023-04-11] MEDS: diphenhydrAMINE 25 MG CAP PO (09:11)
[2023-04-11] MEDS: Normal Saline Flush 10 ML SYR IVP (09:11)
[2023-04-11] MEDS: Acetaminophen 325 MG TAB PO (09:11)
[2023-04-11 09:19] VITALS: BP 152/77; PULSE 58; RESP 18; TEMP 36.5; O2SAT 100
[2023-04-11 09:34] VITALS: BP 135/71; PULSE 51; RESP 17; TEMP 36.4; O2SAT 99
[2023-04-11 09:54] VITALS: BP 127/71; PULSE 52; RESP 17; TEMP 36.4; O2SAT 99
[2023-04-11 10:25] VITALS: BP 134/72; PULSE 46; RESP 17; TEMP 36.4; O2SAT 100
[2023-04-11 11:08] VITALS: BP 127/74; PULSE 50; RESP 17; TEMP 36.5; O2SAT 100
[2023-04-11] MEDS: IRON SUCROSE COMPLEX 200 MG in Normal Saline 100 ML 440 MG IVPB (11:13)
[2023-04-14 09:56] LABS: Haptoglobin 278 mg/dL (32-197)
== END 2023-04-18 23:59 | disposition home or self-care (01) ==
LOC: INF 00:07
PROVIDERS: PCP Nurse Practitioner Family; Visit Provider Surgery
DX: D64.9 Anemia, unspecified (principal)
CPT/HCPCS: 36415; 36430; 86850; 86900; 86901; 86920; 96365; 83010; 86880; J1756; P9016

== ENCOUNTER 2023-04-11 10:28 | Outpatient (CLI) | payer MEDICARE, SELFPAY ==
[2023-04-11 07:35] LABS: HGB 8.2 g/dL (11.2-15.7); MCH 27.7 pg (27.0-33.0); MCHC 31.5 % (32.0-36.0); MCV 88 fL (80-95); MPV 8.9 fL (8.0-11.0); Platelet Count 225 10^3/uL (130-400); RBC 2.96 10^6/uL (3.93-5.22); RDW 16.1 % (11.7-14.6); RDW-SD 52.1 fL; Reticulocyte 1.8 % (0.5-2.4); WBC 6.54 10^3/uL (4.4-10.8)
== END 2023-04-11 10:29 | disposition home or self-care (01) ==
LOC: LBO 10:29
PROVIDERS: PCP Nurse Practitioner Family; Visit Provider Surgery
DX: D64.9 Anemia, unspecified (principal); D50.9 Iron deficiency anemia, unspecified; D62 Acute posthemorrhagic anemia; R53.83 Other fatigue; K57.90 Diverticulosis of intestine, part unspecified, without perforation or abscess without bleeding; K76.0 Fatty (change of) liver, not elsewhere classified
CPT/HCPCS: 36415; 85027; 86900; 86901; 83010; 85045; 86880

== ENCOUNTER → 2023-04-15 15:00 | Outpatient (BNVA) | payer MEDICARE, SELFPAY | PROVIDERS: PCP Nurse Practitioner Family; Referring Provider Nurse Practitioner Family; Visit Provider Surgery | DX: D64.9 Anemia, unspecified (principal) | CPT/HCPCS: 36415 ==

== ENCOUNTER 2023-04-15 15:09 | Outpatient (REF) | payer MEDICARE, SELFPAY ==
[2023-04-15 15:26] LABS: Abs Immature Grans 0.04 10^3/uL (0.0-0.06); Absolute Basophil Count 0.05 10^3/uL (0.0-0.2); Absolute Eosinophil Count 0.23 10^3/uL (0.0-0.7); Absolute Lymphocyte Count 1.32 10^3/uL (1.2-3.4); Absolute Monocyte Count 0.55 10^3/uL (0.1-0.8); Absolute Neutrophil Count 5.12 10^3/uL (1.2-6.7); Basophils % 0.7; Eosinophils % 3.1; HCT 28.3 % (36.0-46.0); HGB 8.8 g/dL (11.2-15.7); Immature Grans % 0.5; Lymphocytes % 18.1; MCH 27.7 pg (27.0-33.0); MCHC 31.1 % (32.0-36.0); MCV 89 fL (80-95); Monocytes % 7.5; Neutrophils % 70.1; Platelet Count 228 10^3/uL (130-400); RBC 3.18 10^6/uL (3.93-5.22); RDW 16.4 % (11.7-14.6); RDW-SD 52.8 fL; WBC 7.31 10^3/uL (4.4-10.8)
[2023-04-15 15:54] LABS: Ferritin 189 ng/mL (8-252)
== END 2023-04-15 15:10 | disposition home or self-care (01) ==
LOC: LBN 15:09
PROVIDERS: PCP Nurse Practitioner Family; Visit Provider Surgery
DX: D50.9 Iron deficiency anemia, unspecified (principal)
CPT/HCPCS: 82728; 85025

== ENCOUNTER 2023-04-17 09:41 | Day surgery (SDC) | payer MEDICARE, SELFPAY ==
--- NOTE | 2023-04-16 20:13 | W.PM.DSUDISC ---
Date of service: 04/17/23 Time of Service: 11:42 Discharge Plan Disposition Patient Disposition: Home Condition: Good Discharge Details Reason For Visit: EGD and colonoscopy Attending Provider: Bob Bates Primary Care Provider: Martin Estrada Home Meds and New Rx's Prescriptions: New sucralfate [Carafate] 1 gram tablet 1 g PO QACHS Qty: 120 0RF Rx Instructions: Take as instructed Continued ferrous sulfate 325 mg (65 mg iron) tablet 325 mg PO .every other day Qty: 90 0RF PreserVision AREDS-2 250-90-40-1 mg capsule 1 tab PO BID Qty: 1 0RF losartan 100 mg tablet 100 mg PO DAILY Qty: 90 3RF clopidogrel 75 mg tablet 75 mg PO DAILY AM Qty: 90 3RF spironolactone 25 mg tablet 25 mg PO DAILY Qty: 90 3RF acetaminophen [Tylenol Arthritis] 650 MG tablet extended release 1 tab PO DAILY PRN SYSTANE 0.3-0.4% EYE DROPS 5 ML drops 1 drp Ophthalmic PRN cholecalciferol (vitamin D3) 25 mcg (1,000 unit) capsule 1,000 unit PO DAILY Qty: 90 12RF Discontinued polyethylene glycol 3350 17 gram/dose powder 238 g PO ONCE Qty: 238 0RF Rx Instructions: take per colonoscopy instructions bisacodyl [Dulcolax (bisacodyl)] 5 mg tablet,delayed release (DR/EC) 5 mg PO ONCE Qty: 4 0RF Rx Instructions: take per colonoscopy instructions Discharge Instructions Instructions: Diet for Stomach Ulcers and Gastritis (GEN), Peptic Ulcer (GEN) Additional Instructions: Roselyn, I was able to complete your upper endoscopy today without any difficulty. You do have some ulcers in your stomach, which could certainly be a source of your bleeding. I performed biopsies of these today, and will take a little time to get the final results. I have also provided prescriptions for 2 medications to help with stomach ulcers. Your colonoscopy was a bit more challenging. I was only able to pass the camera up a small way. At that point, I encountered some narrowed tissue, that did not allow me to safely evaluate the entire length of your large intestine. I did perform some biopsies of this area. Based on the history of diverticulosis, the most likely source of this narrowing is scar tissue. However, it is also possible that other problems, such as colon cancer, could be causing this blockage. I did perform some biopsies of this area as well. We have already scheduled a follow-up appointment in the office for April 30. We will sit down at that point and talk about the next steps. 1. If tolerated, consume a soft, low fiber diet for 1-2 days. [address] Do not drive, drink alcohol, operate machinery, make critical decisions, or do activities that require coordination or balance for 24 hours. 3. Because air was put into your colon during the procedure, expelling air from your rectum (passing gas or farting) is normal. 4. You may not have a bowel movement for 1-3 days because of the colonoscopy prep. This is normal. 5. You may experience a sore throat for 24 to 48 hours. You may use throat lozenges or gargle with warm salt water to relieve the discomfort. 6. Because air was put into your stomach during the procedure, you may experience some belching. 7. Go directly to the emergency room if you notice any of the following: Develop chills (warm to touch), or if you have a thermometer and your temperature is above 101 Difficulty breathing or difficultly swallowing Persistent vomiting Severe abdominal pain, other than gas cramps Severe chest pain Black, tarry stools Any bleeding ? exceeding one tablespoon 8. Call your physician if the site where your intravenous was started becomes red, swollen, painful, and warm to touch. 9. Your physician has reviewed your pre-procedure medications. Please continue to take those medications as previously ordered. You will be given specific information/education regarding any changes to your medications before leaving. Activity:: Activity as Tolerated Diet:: As Tolerated Discharge Orders Discharge Orders: Discharge Order (Routine); Ordered 04/16/23 Ordered By: Bob Bates DS: Diagnosis Discharge Diagnosis (1) Symptomatic anemia: Status: Acute Asessment and Plan: Follow-up on biopsy results; outpatient follow-up visit on April 30
--- NOTE | 2023-04-16 20:16 | W.PM.ENDDOP ---
Date of service: 04/17/23 Time of Service: 11:50 Endoscopy Report DATE OF PROCEDURE: 04/17/23 PRE-OP DIAGNOSIS: Anemia POST-OP DIAGNOSIS: other (Peptic ulcers, gastric polyps, colon stricture around 25 cm from the anal verge) PROCEDURE: EGD and colonoscopy SURGEON: Bob Bates ANESTHESIA TYPE: General:No Airway ESTIMATED BLOOD LOSS: 20 PATHOLOGY: other (Gastric ulcer biopsies, gastric polyp; random biopsies of colon stricture) COMPLICATIONS: None DISPOSITION: same day INDICATIONS: Roselyn is am 83 year old woman with anemia. PREP: Miralax/Dulcolax PROCEDURE START TIME: 11:04 PROCEDURE END TIME: 11:28 COLONOSCOPY RETRACTION TIME: 15 FINDINGS: Antral gastritis, gastric polyps; or rectal stricture around 25 cm from the anal verge PROCEDURE DESCRIPTION: After the initiation of monitored anesthetic care, and with the assistance of a bite block, I advanced a standard gastroscope through the mouth past the hypopharynx and into the esophagus.? Under the direct vision of the scope, I advanced down the esophagus into the stomach.? Once I entered the stomach, I performed a brief inspection, followed by retroflexion towards the gastric cardia.? This appeared normal.? After that, I gently advanced the scope around the incisura angularis and examined the pylorus.? There were linear ulcerations arising from the pyloric area within the antrum. None appear to be actively bleeding. Some did appear to have some stigmata of recent bleeding, although the ulcers themselves were quite small. Next, I advanced the scope through the pylorus into the duodenum.? The mucosa was pink and healthy appearing.? There were no abnormalities.? I was able to visualize bile draining into the duodenum through the ampulla Vater. ?Next, I began retracting the endoscope.? I brought the camera back into the stomach, and I did perform biopsies of the antral ulcers. This was done with cold forceps along the margin of the ulcers. There is no heaped up tissue surrounding them. During repeat examination of the stomach, it was evident that there were several polyps within the main body of the stomach. They appeared consistent with fundic gland polyps. Polypectomy was performed for shipping services sales representative sampling I then gently desufflated some of the stomach, and withdrew the endoscope into the distal esophagus. The GE junction and Z-line were normal-appearing.. ?Finally, I withdrew the scope along the length of the esophagus taking great care to examine the entirety of the mucosa.? I did not appreciate any abnormalities. We then moved Roselyn into the left lateral decubitus position., I began by performing an external anorectal exam.? Perineum and skin were normal, as was the anal verge.? There was no evidence of external hemorrhoids.? Next, I performed a digital rectal exam.? I did not appreciate any abnormal findings.? Next, I advanced a colonoscope into the rectal vault.? I performed retroflexion.? This appeared normal.? Using insufflation, I then advanced the colonoscope beyond the rectal folds. Around 25 cm from the anal verge, the lumen of the colon narrowed quite a bit. The mucosa generally appeared normal. There was a punctate area of friability. Despite several attempts, was not able to navigate through the lumen of this, although it did appear that the insufflation could pass. Based on her history of extensive diverticulosis, diverticulitis, and concerns of tissue thickening around 20 cm from the anus on her previous colonoscopy, I felt the safest thing to do at this point was to truncate the colonoscopy. I did perform some random biopsies of the mucosa lining the colonic narrowing. I withdrew the camera along the length of the colon at that point, and I did not observe any other polyps or tumors. I then withdrew the camera and allowed the patient from wake and anesthesia. I explained the findings in the recovery unit.
[2023-04-17 10:10] VITALS: BP 150/61; PULSE 58; RESP 16; TEMP 36.2; O2SAT 98
[2023-04-17] MEDS: Lactated Ringers 1,000 ML 80 ML IV (10:45)
--- NOTE | 2023-04-17 11:06 | STOM_PTH ---
PATIENT: Roselyn Hartley LOC: [facility] U#:[id number] AGE/SX: 83/F ROOM: RE04/17/[address]: Bob Bates MD : [id number] BED: DIS: 04/17/2023 SPEC #: [id number] RECD: 04/17/23 12:48 STATUS: [facility] #: [id number] PATRICIO: 04/17/23 11:[address]: Bob Bates DEPT: Surgical Specimen RECD BY: Ghazal Grayson ENTERED: 04/17/23 12:49 SP TYPE: STOMACH OTHR DR: Martin Estrada, FAST FOOD SALES ASSISTANT Tissues: 1 - STOMACH BIOPSY 2 - STOMACH BIOPSY 3 - BIOPSY BOWEL Procedures: GROSS AND MICRO LEVEL 4 Comments: [id number]
[2023-04-17 11:28] VITALS: BMI 26.3
--- NOTE | 2023-04-17 11:28 | W.ANESPRE ---
General Info Date of Service Date Performed: 04/17/23 Height: 5 ft 4 in Weight: 69.6 kg Body Mass Index (BMI): 26.3 Surgical Procedure: Operation Date: 04/17/23 10:50 Proposed Procedure Side Surgeon p Colonoscopy/Gastroscopy w/Biopsy Bob Bates MD Actual Procedure Side Surgeon p Colonoscopy/Gastroscopy w/Biopsy Not Applicable Bob Bates MD Pre-Op Diagnosis Post-Op Diagnosis anemia peptic ulcer disease Meds Allergies and Home Medications Allergies Allergy/AdvReac Type Severity Reaction Status Date / Time amlodipine Allergy Intermediate SWELLING Verified 04/17/23 10:26 THROAT loratadine Allergy Mild HIVES Verified 04/17/23 10:26 rabeprazole Allergy Unknown Verified 04/17/23 10:26 shrimp Allergy Other (See Verified 04/17/23 10:26 Comment) chlorthalidone AdvReac Intermediate Headache Verified 04/17/23 10:26 and general unwellness latex AdvReac Intermediate Skin Rash Verified 04/17/23 10:26 codeine AdvReac Mild SEVERE Verified 04/17/23 10:26 STOMACH PAIN lisinopril AdvReac Mild COUGH Verified 04/17/23 10:26 Home Medication Medication Instructions Recorded Systane 0.3-0.4% Eye Drops 1 drp ophthalmic (eye) PRN 02/22/13 acetaminophen 650 mg 1 tab PO DAILY PRN 02/22/13 tablet,extended release (Tylenol Arthritis) cholecalciferol (vitamin D3) 25 1,000 unit PO DAILY #90 tabs 04/17/22 mcg (1,000 unit) capsule vit C 250 mg-vit E 90 mg-zinc 40 1 tab PO BID #1 cap 05/15/22 mg-copper 1 [id number] capsule (PreserVision AREDS-2) losartan 100 mg tablet 100 mg PO DAILY #90 tabs 08/15/22 clopidogrel 75 mg tablet 75 mg PO DAILY AM #90 tabs 01/16/23 spironolactone 25 mg tablet 25 mg PO DAILY #90 tabs 01/16/23 ferrous sulfate 325 mg (65 mg 325 mg PO .every other day #90 tabs 03/20/23 iron) tablet Current Visit Medications: Current Medications Generic Name Dose Route Start Last Admin Trade Name Freq PRN Reason Stop Dose Admin Hyoscyamine Sulfate 0.125 mg 04/16/23 20:17 Hyoscyamine 0.125 Mg Sl/Oral/Chew SL 05/16/23 20:16 DIRECTED PRN Ringer's Solution 1,000 mls @ 80 mls/hr 04/17/23 06:00 04/17/23 10:45 IV 05/16/23 23:59 80 mls/hr INFUSION [facility] Administration Iron Sucrose 200 mg/ Sodium 110 mls @ 440 mls/hr 04/17/23 06:00 Chloride IVPB 04/17/23 16:00 TODAY [facility] IV Miscellaneous Supplies 1 each 04/17/23 06:00 Iv Access IV 05/16/23 23:59 DIRECTED HARPREET Ondansetron HCl 4 mg 04/16/23 20:17 Ondansetron 4 Mg/2 Ml Vial IVP 05/16/23 20:16 Q4H PRN PRN Nausea / Vomiting Sodium Chloride 0 ml 04/17/23 06:00 Normal Saline Flush 10 Ml Syr IV 05/16/23 23:59 PRN PRN Sodium Chloride 0 ml 04/17/23 06:00 Normal Saline 10 Ml Vial IJ 05/16/23 23:59 DIRECTED PRN Sterile Water 0 ml 04/17/23 06:00 Water,Injection,Sterile 10 Ml Vial IJ 05/16/23 23:59 DIRECTED PRN PFSH Active Problems Active Problems: Problem Status Onset Code Dizzy R42 SOB (shortness of breath) R06.02 Symptomatic anemia D64.9 Fe deficiency anemia D50.9 Alternating constipation and diarrhea R19.8 LLQ abdominal pain R10.32 Unexplained weight loss R63.4 Atherosclerosis I70.90 Anemia due to blood loss, acute D62 Abdominal pain R10.9 Aortic heart murmur I35.8 Tear of right rotator cuff M75.101 Primary osteoarthritis, 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 Diverticulosis K57.90 Colonic diverticular abscess K57.20 Abdominal pain R10.9 Anemia D64.9 Fatigue R53.83 Right carpal tunnel syndrome G56.01 Sessile colonic polyp 02/17/18 K63.5 Primary osteoarthritis of both hands 10/23/16 M19.041, M19.042 Peripheral neuralgia M79.2 Obesity E66.9 Non-alcoholic fatty liver disease K76.0 Murmur, cardiac 10/23/16 R01.1 Lichen sclerosus et atrophicus of the vulva 12/27/15 N90.4 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 Family history of breast cancer in sister 12/27/15 Z80.3 Essential hypertension 08/26/13 I10 Cystocele, midline N81.11 Complete edentulism, unspecified K08.109 Allergic rhinitis J30.9 Medical History Medical History Generalized osteoarthrosis L-S spine Surgical History Surgical History Appendectomy Cholecystectomy (~1965) Colonoscopy - IV Sedation 2006 Colonoscopy - MAC (02/17/18) Extraction of cataract 01/24/15-LEFT 02/14/15 RIGHT Hemorrhoidal Banding (02/17/18) Tobacco Smoking/Tobacco Use Status: Never Passive smoking exposure: Yes Second hand exposure: Yes Alcohol Alcohol Intake: current Alcohol intake frequency: holidays/special occasions only Alcohol type: wine Substance Use Substance use: Never Substance use type: does not use Vital Signs and Lab Results Vital Signs Most Recent Vital Signs in EMR: Most Recent Vital Signs Temp Pulse Resp BP Pulse Ox 36.2 C L 58 L 16 150/61 H 98 04/17/23 10:10 04/17/23 10:10 04/17/23 10:10 04/17/23 10:10 04/17/23 10:10 Lab Results Blood Type / Crossmatch: Patient ABO/Rh O Positive 04/11/23 Antibody Screen NEGATIVE 04/11/23 Crossmatch See Detail 04/11/23 Complete Blood Count: White Blood Count 7.31 10^3/uL (4.4-10.8) 04/15/23 15:07 Red Blood Count 3.18 10^6/uL (3.93-5.22) L 04/15/23 15:07 Hemoglobin 8.8 g/dL (11.2-15.7) L 04/15/23 15:07 Hematocrit 28.3 % (36.0-46.0) L 04/15/23 15:07 Platelet Count 228 10^3/uL (130-400) 04/15/23 15:07 Complete Metabolic Panel: No Data to Display Liver Function Panel: No Data to Display Coagulation Panel: No Data to Display Cardiac Panel: No Data to Display Arterial Blood Gas: No Data to Display Venous Blood Gas: No Data to Display Pancreas Panel: No Data to Display Thyroid Panel: No Data to Display Infectious Disease: No Data to Display Blood Cultures: No Data to Display Toxicology Panel: No Data to Display Anesthesia Assessment and Plan Anesthesia History Personal History: No History of Anesthesia Complications Family History: No Family History of Anesthesia Complications Exercise Tolerance Exercise Tolerance: Metabolic Equivalents>4 Pertinent Negatives Pertinent Negatives: No Symptoms of GERD, No Major Cardiovascular Symptoms or Complaints, No Major Pulmonary Symptoms or Complaints and No History of CVA/TIA Cardiac & Pulmonary Exam Cardiac Exam: Normal S1/S2 Heart Sounds Pulmonary Exam: Clear Bilateral Breath Sounds Implantable Cardiac Device Does patient have a Pacemaker or an ICD?: No Airway Exam Known Difficult Airway: No Mallampati Class: 2 Mouth Opening: Normal (> 3cm) Thyromental Distance: Greater than 3 cm Neck Range of Motion: Full ROM Neck Circumference: Normal Teeth Condition: Normal Dentition ASA Classification ASA Score: ASA 2 Emergency Case?: No NPO Status NPO Status: NPO Clears >2 hours, Solids >8 hours Anesthesia Plan Resuscitation Status: Full Code Anesthesia Technique: General Anesthesia Airway Planned: Natural Airway Monitors Used: Standard Monitors
[2023-04-17 11:38] VITALS: BP 121/51; PULSE 57; RESP 16; TEMP 36.1; O2SAT 96
[2023-04-17] MEDS: IRON SUCROSE COMPLEX 200 MG in Normal Saline 100 ML 440 MG IVPB (11:41)
[2023-04-17 12:03] VITALS: BP 128/68; PULSE 49; RESP 16; TEMP 36.1; O2SAT 99
--- NOTE | 2023-04-18 07:08 | W.ANESPOSTOP ---
Postoperative Evaluation Date, Time and Location Date Performed: 04/18/23 Time Performed: 07:09 Patient Location: Day Surgery Unit Vital Signs Most Recent Imported Vital Signs: Most Recent Vital Signs Temp Pulse Resp BP Pulse Ox 36.1 C L 49 L 16 128/68 99 04/17/23 12:03 04/17/23 12:03 04/17/23 12:03 04/17/23 12:03 04/17/23 12:03 Pain Score Most Recent Pain Score: Most Recent Pain Score Pain Level 0 04/17/23 12:03 Assessment Mental Status: Awake (Alert & Oriented to Patient Baseline) Airway and Respiratory Function: Patent airway with normal (patient baseline) respiratory exam Cardiovascular Function: Hemodynamically Stable Hydration Status: Adequately Hydrated Nausea & Vomiting: No Nausea or Vomiting Pain: Pt. Denies Any Pain Peripheral Nerve Block: Patient did not receive a nerve block
== END 2023-04-17 13:05 | disposition home or self-care (01) ==
PROVIDERS: PCP Nurse Practitioner Family; Visit Provider Surgery
PROC: (CPT 45331; principal; 2023-04-17 10:45)
DX: D64.9 Anemia, unspecified (principal); K31.7 Polyp of stomach and duodenum; K56.699 Other intestinal obstruction unspecified as to partial versus complete obstruction; K29.70 Gastritis, unspecified, without bleeding; K27.4 Chronic or unspecified peptic ulcer, site unspecified, with hemorrhage; K31.89 Other diseases of stomach and duodenum; K63.89 Other specified diseases of intestine
CPT/HCPCS: 45331; 43239; 88305; J1756; J2001

== ENCOUNTER 2023-04-30 02:40 | Outpatient (CLI) | payer MEDICARE, SELFPAY ==
[2023-04-30 13:33] LABS: Abs Immature Grans 0.02 10^3/uL (0.0-0.06); Absolute Basophil Count 0.03 10^3/uL (0.0-0.2); Absolute Eosinophil Count 0.19 10^3/uL (0.0-0.7); Absolute Lymphocyte Count 1.32 10^3/uL (1.2-3.4); Absolute Monocyte Count 0.62 10^3/uL (0.1-0.8); Absolute Neutrophil Count 4.59 10^3/uL (1.2-6.7); Basophils % 0.4; Eosinophils % 2.8; HCT 25.7 % (36.0-46.0); HGB 8.3 g/dL (11.2-15.7); Immature Grans % 0.3; Lymphocytes % 19.5; MCHC 32.3 % (32.0-36.0); MCV 90 fL (80-95); MPV 9.7 fL (8.0-11.0); Monocytes % 9.2; Neutrophils % 67.8; Platelet Count 158 10^3/uL (130-400); RBC 2.86 10^6/uL (3.93-5.22); RDW 17.7 % (11.7-14.6); RDW-SD 58.7 fL; WBC 6.77 10^3/uL (4.4-10.8)
[2023-04-30 14:29] LABS: Ferritin 145 ng/mL (8-252)
== END 2023-04-30 02:41 | disposition home or self-care (01) ==
LOC: LBO 02:40
PROVIDERS: PCP Nurse Practitioner Family; Visit Provider Surgery
DX: D50.9 Iron deficiency anemia, unspecified (principal); D62 Acute posthemorrhagic anemia; R10.32 Left lower quadrant pain; R19.8 Other specified symptoms and signs involving the digestive system and abdomen
CPT/HCPCS: 36415; 82728; 85025

== ENCOUNTER 2023-05-02 01:30 | Outpatient (RCR) | payer MEDICARE, SELFPAY ==
[2023-04-19 00:20] VITALS: BP 127/74; PULSE 50; RESP 17; TEMP 36.5
[2023-05-02] MEDS: Normal Saline Flush 10 ML SYR IVP (09:40)
[2023-05-02 11:00] VITALS: BP 136/78; PULSE 64; RESP 17; TEMP 36.8; O2SAT 99
[2023-05-02 11:15] VITALS: BP 126/70; PULSE 60; RESP 18; TEMP 36.7; O2SAT 98
[2023-05-02 11:30] VITALS: BP 127/71; PULSE 56; RESP 18; TEMP 36.7; O2SAT 98
[2023-05-02 11:55] VITALS: BP 124/68; PULSE 56; RESP 17; TEMP 36.6; O2SAT 99
[2023-05-02 12:44] VITALS: BP 145/68; PULSE 57; RESP 17; TEMP 36.6; O2SAT 97
== END 2023-05-19 23:59 | disposition home or self-care (01) ==
LOC: INF 01:30
PROVIDERS: PCP Nurse Practitioner Family; Visit Provider Surgery
DX: D64.9 Anemia, unspecified (principal)
CPT/HCPCS: 36415; 36430; 86850; 86900; 86901; 86920; 99213; P9016

== ENCOUNTER → 2023-05-02 12:59 | Outpatient (BNVA) | payer MEDICARE, SELFPAY | PROVIDERS: PCP Nurse Practitioner Family; Referring Provider Nurse Practitioner Family; Visit Provider Surgery | DX: K56.699 Other intestinal obstruction unspecified as to partial versus complete obstruction (principal); D64.9 Anemia, unspecified | CPT/HCPCS: 99213 ==

== ENCOUNTER 2023-05-07 03:04 | Outpatient (CLI) | payer MEDICARE, SELFPAY ==
--- NOTE | 2023-05-07 07:45 | DI.RAD_ITS ---
Exam(s) RF BARIUM ENEMA EXAM: RF BARIUM ENEMA CLINICAL HISTORY: colon stricture,anemia,e50.9,k56.699 COMPARISON: No exams were available for comparison TECHNIQUE: 2D and realtime digital imaging was performed. CONTRAST MATERIAL: Barium contrast was administered via rectal tube. Air contrast exam.. FINDINGS: Photogrammetric Compilation Specialist view of the abdomen shows a normal bowel gas pattern. Vascular stent. Lung bases are clear. Mitral annular calcification. Degenerative changes present in the spine. Barium was refluxed with difficulty to the cecum and terminal ileum. The patient had difficulty keo ining the barium. Patient also had difficulty maintaining administered air. The sigmoid is extremely tortuous proximally. Diverticulosis noted throughout. There is prominent d iverticulosis of the sigmoid and descending colon. There is mucosal hypertrophy in the sigmoid with some narrowing. No evidence of significant stricture or mass. Barium was refluxed to the terminal i leum which was unremarkable. IMPRESSION: Limited exam due to patient inability to the are retained administered barium and air. Severe sigmoi d diverticulosis. Extremely redundant sigmoid. RADIATION DOSE DELIVERED: sandra Oro=107 mGy
== END 2023-05-07 03:24 ==
LOC: DI 03:07
PROVIDERS: PCP Nurse Practitioner Family; Visit Provider Surgery
DX: D50.9 Iron deficiency anemia, unspecified (principal); K57.31 Diverticulosis of large intestine without perforation or abscess with bleeding
CPT/HCPCS: 74270

== ENCOUNTER 2023-05-08 10:14 | Outpatient (CLI) | payer MEDICARE, SELFPAY ==
[2023-05-08 13:17] LABS: HCT 28.6 % (36.0-46.0); HGB 9.4 g/dL (11.2-15.7)
[2023-05-08 13:57] LABS: Ferritin 166 ng/mL (8-252)
== END 2023-05-08 10:15 | disposition home or self-care (01) ==
LOC: LBO 10:16
PROVIDERS: PCP Nurse Practitioner Family; Visit Provider Surgery
DX: I10 Essential (primary) hypertension (principal); K76.0 Fatty (change of) liver, not elsewhere classified
CPT/HCPCS: 36415; 99212; 82728; 85014; 85018

== ENCOUNTER 2023-06-09 08:49 | Outpatient (CLI) | payer MEDICARE, SELFPAY ==
[2023-06-09 14:08] LABS: HCT 26.2 % (36.0-46.0); HGB 8.4 g/dL (11.2-15.7)
[2023-06-09 15:45] LABS: CREATININE 1.3 mg/dL (0.55-1.02); Ferritin 55 ng/mL (8-252); Potassium 3.8 mmol/L (3.5-5.1)
== END 2023-06-09 08:50 | disposition home or self-care (01) ==
LOC: LBO 08:52
PROVIDERS: PCP Nurse Practitioner Family; Visit Provider Surgery
DX: I10 Essential (primary) hypertension (principal); D50.9 Iron deficiency anemia, unspecified; D62 Acute posthemorrhagic anemia; D64.9 Anemia, unspecified; K27.9 Peptic ulcer, site unspecified, unspecified as acute or chronic, without hemorrhage or perforation; K56.699 Other intestinal obstruction unspecified as to partial versus complete obstruction; K57.20 Diverticulitis of large intestine with perforation and abscess without bleeding; K57.90 Diverticulosis of intestine, part unspecified, without perforation or abscess without bleeding
CPT/HCPCS: 36415; 82565; 82728; 84132; 85014; 85018

== ENCOUNTER 2023-06-11 04:00 | Outpatient (RCR) | payer MEDICARE, SELFPAY ==
[2023-05-20 00:07] VITALS: BP 145/68; PULSE 57; RESP 17; TEMP 36.6
[2023-06-11] MEDS: IRON SUCROSE COMPLEX 200 MG in Normal Saline 100 ML 440 MG IVPB (08:16)
[2023-06-11] MEDS: Normal Saline Flush 10 ML SYR IVP (08:16)
[2023-06-11] MEDS: diphenhydrAMINE 25 MG CAP PO (08:16)
[2023-06-11] MEDS: Acetaminophen 325 MG TAB 650 MG PO (08:17)
[2023-06-11 09:13] VITALS: BP 124/52; PULSE 54; RESP 18; TEMP 36.6; O2SAT 98
[2023-06-11 09:28] VITALS: BP 132/64; PULSE 50; RESP 18; TEMP 36.6; O2SAT 98
[2023-06-11 09:45] VITALS: BP 115/69; PULSE 45; RESP 16; TEMP 36.6; O2SAT 99
[2023-06-11 10:15] VITALS: BP 147/71; PULSE 49; RESP 18; TEMP 36.4; O2SAT 98
[2023-06-11 11:05] VITALS: BP 157/69; PULSE 50; RESP 18; TEMP 36.1; O2SAT 99
== END 2023-06-19 23:59 | disposition home or self-care (01) ==
LOC: INF 04:00
PROVIDERS: PCP Nurse Practitioner Family; Visit Provider Surgery
DX: D64.9 Anemia, unspecified (principal)
CPT/HCPCS: 36415; 86850; 86900; 86901; 86920; 96365; J1756; P9016

== ENCOUNTER 2023-06-19 13:28 | Outpatient (CLI) | payer MEDICARE, SELFPAY ==
[2023-06-19 13:38] LABS: HCT 30.5 % (36.0-46.0); HGB 9.9 g/dL (11.2-15.7); Reticulocyte 1.8 % (0.5-2.4)
[2023-06-19 14:11] LABS: Ferritin 179 ng/mL (8-252); LDH 141 U/L (81-234)
[2023-06-20 09:01] LABS: Haptoglobin 183 mg/dL (32-197)
== END 2023-06-19 13:29 | disposition home or self-care (01) ==
LOC: LBO 13:30
PROVIDERS: PCP Nurse Practitioner Family; Visit Provider Surgery
DX: D50.9 Iron deficiency anemia, unspecified (principal); D62 Acute posthemorrhagic anemia; D64.9 Anemia, unspecified; K27.9 Peptic ulcer, site unspecified, unspecified as acute or chronic, without hemorrhage or perforation; K76.0 Fatty (change of) liver, not elsewhere classified; I10 Essential (primary) hypertension
CPT/HCPCS: 36415; 99212; 82728; 83010; 83615; 85014; 85018; 85045

== ENCOUNTER 2023-06-30 02:05 | Outpatient (CLI) | payer MEDICARE, SELFPAY ==
[2023-06-30 08:54] LABS: Abs Immature Grans 0.03 10^3/uL (0.0-0.06); Absolute Basophil Count 0.03 10^3/uL (0.0-0.2); Absolute Eosinophil Count 0.25 10^3/uL (0.0-0.7); Absolute Lymphocyte Count 1.04 10^3/uL (1.2-3.4); Absolute Monocyte Count 0.49 10^3/uL (0.1-0.8); Absolute Neutrophil Count 4.07 10^3/uL (1.2-6.7); Basophils % 0.5; Eosinophils % 4.2; HCT 28.6 % (36.0-46.0); HGB 9.1 g/dL (11.2-15.7); Immature Grans % 0.5; Lymphocytes % 17.6; MCH 30.7 pg (27.0-33.0); MCHC 31.8 % (32.0-36.0); MCV 97 fL (80-95); Monocytes % 8.3; Neutrophils % 68.9; Platelet Count 143 10^3/uL (130-400); RBC 2.96 10^6/uL (3.93-5.22); RDW 14.8 % (11.7-14.6); RDW-SD 52.3 fL; WBC 5.91 10^3/uL (4.4-10.8)
== END 2023-06-30 02:06 | disposition home or self-care (01) ==
LOC: LBO 02:05
PROVIDERS: PCP Nurse Practitioner Family; Visit Provider Surgery
DX: I10 Essential (primary) hypertension (principal)
CPT/HCPCS: 36415; 85025

== ENCOUNTER 2023-07-04 11:47 | Day surgery (SDC) | payer MEDICARE, SELFPAY ==
--- NOTE | 2023-07-03 21:40 | ENDO_ITS ---
Date of service: 07/04/23 Time of Service: 13:53 Endoscopy Report DATE OF PROCEDURE: 07/04/23 PRE-OP DIAGNOSIS: Persistent iron deficiency anemia/peptic ulcer disease POST-OP DIAGNOSIS: other (Mild gastritis/no ulcers no active bleeding/) SURGEON: Paloma Novoa ANESTHESIA TYPE: General:No Airway ESTIMATED BLOOD LOSS: 0 PATHOLOGY: none sent COMPLICATIONS: None DISPOSITION: same day PROCEDURE DESCRIPTION: After informed consent was obtained the patient was take to the procedure room and placed in a supine position. Monitors were applied and a time out was done. The patients name, date of , procedure type, allergies to medications and metal in their body was reviewed. A bite block was placed and the patient was sedated. Once sedated and comfortable the gastroscope was advanced through the oropharynx which was grossly normal into the esophagus. The proximal and mid- esophagus were normal. In the distal esophagus there was normal-there are no esophageal erosions, varices, diverticula, or strictures visualized today. The scope was advanced into the stomach and through the pylorus into the 3rd portion of the duodenum. The duodenum was noted to be normal. Biopsies were as patient did not stop her Plavix not done, . The scope was retracted back into the stomach and biopsies were done to rule out H. pylori. There were no ulcers. There are some mild gastritis in a striped fashion radiating from the antrum. There is no signs of active or old blood in the stomach. The peptic ulcer disease that was present on her last scope has resolved. The scope was retroflexed. The cardia and fundus were noted to be normal. There is no hiatal hernia noted. The scope was retracted back into the esophagus and biopsies were done of the GE junction to rule out Carrasco's. The Z line was regular. The GE junction was at 36 cm. The scope was removed and the patient was woken up and taken back to [facility] in stable condition. -The findings today do not explain the patient's degree of persistent anemia.
--- NOTE | 2023-07-03 21:41 | PDOC.DSDIS_ITS ---
Date of service: 07/04/23 Time of Service: 13:15 Discharge Plan Disposition Patient Disposition: Home Condition: Good Discharge Details Reason For Visit: ANEMIA Attending Provider: Paloma Novoa Primary Care Provider: Martin Estrada Home Meds and New Rx's Prescriptions: No Action ferrous sulfate 325 mg (65 mg iron) tablet 325 mg PO .every other day Qty: 90 0RF PreserVision AREDS-2 250-90-40-1 mg capsule 1 tab PO BID Qty: 1 0RF oxybutynin chloride 5 mg tablet extended release 24hr 5 mg PO DAILY Qty: 90 3RF losartan 100 mg tablet 100 mg PO DAILY Qty: 90 3RF clopidogrel 75 mg tablet 75 mg PO DAILY AM Qty: 90 3RF spironolactone 25 mg tablet 25 mg PO DAILY Qty: 90 3RF pantoprazole [Protonix] 40 mg tablet,delayed release (DR/EC) 40 mg PO DAILY Qty: 90 4RF acetaminophen [Tylenol Arthritis] 650 MG tablet extended release 1 tab PO DAILY PRN SYSTANE 0.3-0.4% EYE DROPS 5 ML drops 1 drp Ophthalmic PRN cholecalciferol (vitamin D3) 25 mcg (1,000 unit) capsule 1,000 unit PO DAILY Qty: 90 12RF Blink Gel Tears 0.25 % Drops,Gel 1 drp OPHTHALMIC (EYE) BID Discharge Instructions Additional Instructions: Post EGD Instruction ?You had anesthesia for your EGD/stomach scope today.? For your safety, please do the following for the next twenty-four (24) hours: Do Not operate a motor vehicle (car, truck, motorcycle, etc.) Do Not drink alcoholic beverages or use any recreational drugs for the first 24 hours or while taking pain medications. The medications in your body may have a reaction that can be dangerous. Do Not make any important decisions or sign any important papers You have just had a gastroscopy (EGD) or upper GI tract examination. It is important for your smooth recovery that you carefully follow the recommendations below. Do not hesitate to call if any questions should arise about your anesthesia, condition, or care. -Symptoms you may experience during the next 24 hours: ?1. Mild abdominal pain or excessive gas or a bloated feeling which improves with rest, liquids, eating? slightly, and walking as tolerated. 2. Drowsiness and/or forgetfulness because of the medications you were given. ?3. Throat numbness for about 1 hour. 4. A sore throat which you can treat with throat lozenges or by gargling with salt water 4-5 times a day. 5. Redness at the site of your IV which you can treat with warm compresses. SPECIAL INSTRUCTIONS: 1. You may resume your previous diet in one hour. We recommend a light meal to start, then progress as tolerated. 2. Restart regular medications in one hour. 3. No aspirin or non-steroidal containing medication for three days. 4. No lifting over 20 pounds or strenuous activity for the first 24 hours after your procedure. After 24 hours there are no restrictions on your activity, but you may feel fatigued for a few days. Findings: -mild gastritis. Does not explain the low blood count -continue to take the protonix -Continue to follow lifestyle modifications: No alcohol, tobacco products, Aspirin or NSAID's (ibuprofen, Motrin, Naprosyn, aleve, etc).? Try to limit/avoid:? soda pop/any carbonated beverages, caffeine (including tea & chocolate), and acidic foods, (tomatoes, citrus, onions, peppermints) spicy or fried/fatty foods. Do not lie down for 30 minutes after eating, and do not eat 2 hours prior to bedtime. Avoid wearing tight fitting clothing/ belts. -check urinalysis -F/u Martin OVALLE for consideration of Hematology referral. Call the office at [phone] (Office) or [phone] (Hospital), or go to the ER right away if you notice any of the followin. Vomiting blood and /or ?coffee ground? material. ?2. Worsening of abdominal pain or cramping. ?3. Trouble with breathing, cough, and/or fever (temperature above 101.5 F). 4. Increasing pain with swallowing. ?5. Chest pain. 6. Any new symptoms. 7. Worsening of the redness at the IV site Activity:: See above Diet:: See above Discharge Orders Discharge Orders: Discharge Order (Routine); Ordered 07/04/23 Ordered By: Paloma Novoa DS: Diagnosis Discharge Diagnosis (1) Hx of senior living use of blood thinners: Status: Acute (2) Intermittent epigastric abdominal pain: Status: Acute (3) Peptic ulcer disease: Status: Chronic Asessment and Plan: Post Op Endo Note Patient is seen and examined after they are endoscopy.? Patient has minimal sore throat.? They have been able to tolerate liquids.? They do not have any nausea vomiting.? They are not having any chest pain or shortness of breath.? They have been able to pass gas and are not having any abdominal pain or distention.? They have not vomited any blood.? The vital signs have been stable-see nursing notes. We discussed findings on their endoscopy. We reviewed the importance of lifestyle modification-see discharge instructions We reviewed any new medications that the patient may be prescribed-see discharge instructions Patient will either be sent a letter with the biopsy results or follow-up in the office-see discharge instructions. Patient was given explicit instructions to follow-up regarding post endoscopy- refer to discharge Patient verbalized understanding and discharged in stable and satisfactory condition.? See nursing notes. (4) Symptomatic anemia: Status: Acute (5) Fe deficiency anemia: Status: Acute (6) Anemia due to blood loss, acute: Status: Acute (7) Peripheral neuralgia: Status: Chronic (8) Non-alcoholic fatty liver disease: Status: Chronic (9) Generalized osteoarthrosis: Status: Acute (10) Essential hypertension: Status: Chronic (11) Allergic rhinitis: Status: Acute (12) Gastritis: Status: Acute
[2023-07-04 11:53] VITALS: BP 140/56; PULSE 63; RESP 16; TEMP 36.1; O2SAT 100
[2023-07-04] MEDS: Lactated Ringers 1,000 ML 80 ML IV (12:21)
[2023-07-04 12:25] VITALS: BMI 26.5
--- NOTE | 2023-07-04 12:25 | ANES.PREOP_ITS ---
General Info Date of Service Date Performed: 07/04/23 Height: 5 ft 4 in Weight: 70.1 kg Body Mass Index (BMI): 26.5 Surgical Procedure: Operation Date: 07/04/23 12:05 Proposed Procedure Side Surgeon p Gastroscopy w/Biopsy Paloma Novoa DO Actual Procedure Side Surgeon p Gastroscopy w/Biopsy Not Applicable Paloma Novoa, Pre-Op Diagnosis Post-Op Diagnosis ANEMIA Meds Allergies and Home Medications Allergies Allergy/AdvReac Type Severity Reaction Status Date / Time amlodipine Allergy Intermediate SWELLING Verified 07/04/23 12:02 THROAT loratadine Allergy Mild HIVES Verified 07/04/23 12:02 rabeprazole Allergy Unknown Verified 07/04/23 12:02 shrimp Allergy Other (See Verified 07/04/23 12:02 Comment) chlorthalidone AdvReac Intermediate Headache Verified 07/04/23 12:02 and general unwellness latex AdvReac Intermediate Skin Rash Verified 07/04/23 12:02 codeine AdvReac Mild SEVERE Verified 07/04/23 12:02 STOMACH PAIN lisinopril AdvReac Mild COUGH Verified 07/04/23 12:02 Home Medication Medication Instructions Recorded Systane 0.3-0.4% Eye Drops 1 drp ophthalmic (eye) PRN 02/22/13 acetaminophen 650 mg 1 tab PO DAILY PRN 02/22/13 tablet,extended release (Tylenol Arthritis) cholecalciferol (vitamin D3) 25 1,000 unit PO DAILY #90 tabs 04/17/22 mcg (1,000 unit) capsule vit C 250 mg-vit E 90 mg-zinc 40 1 tab PO BID #1 cap 05/15/22 mg-copper 1 [id number] capsule (PreserVision AREDS-2) losartan 100 mg tablet 100 mg PO DAILY #90 tabs 08/15/22 clopidogrel 75 mg tablet 75 mg PO DAILY AM #90 tabs 01/16/23 spironolactone 25 mg tablet 25 mg PO DAILY #90 tabs 01/16/23 ferrous sulfate 325 mg (65 mg 325 mg PO .every other day #90 tabs 03/20/23 iron) tablet oxybutynin chloride 5 mg 5 mg PO DAILY #90 tabs 05/16/23 tablet,extended release 24 hr pantoprazole 40 mg tablet,delayed 40 mg PO DAILY #90 tabs 06/19/23 release (Protonix) polyethylene glycol 400 0.25 % eye 1 drp ophthalmic (eye) BID 07/03/23 gel drops (Blink Gel Tears) Current Visit Medications: Current Medications Generic Name Dose Route Start Last Admin Trade Name Freq PRN Reason Stop Dose Admin Hyoscyamine Sulfate 0.125 mg 07/04/23 09:36 Hyoscyamine 0.125 Mg Sl/Oral/Chew SL 08/03/23 09:35 DIRECTED PRN Ringer's Solution 1,000 mls @ 80 mls/hr 07/04/23 06:00 07/04/23 12:21 IV 07/04/23 23:59 80 mls/hr INFUSION HARPREET Administration IV Miscellaneous Supplies 1 each 07/04/23 06:00 Iv Access IV 07/04/23 23:59 DIRECTED HARPREET Ondansetron HCl 4 mg 07/04/23 09:36 Ondansetron 4 Mg/2 Ml Vial IVP 08/03/23 09:35 Q4H PRN PRN Nausea / Vomiting Sodium Chloride 0 ml 07/04/23 06:00 Normal Saline Flush 10 Ml Syr IV 07/04/23 23:59 PRN PRN Sodium Chloride 0 ml 07/04/23 06:00 Normal Saline 10 Ml Vial IJ 07/04/23 23:59 DIRECTED PRN Sterile Water 0 ml 07/04/23 06:00 Water,Injection,Sterile 10 Ml Vial IJ 07/04/23 23:59 DIRECTED PRN PFSH Active Problems Active Problems: Problem Status Onset Code Hx of nursing home use of blood thinners Z92.29 Intermittent epigastric abdominal pain R10.13 Urinary urgency R39.15 Colon stricture K56.699 Peptic ulcer disease K27.9 Symptomatic anemia D64.9 Fe deficiency anemia D50.9 LLQ abdominal pain R10.32 Unexplained weight loss R63.4 Atherosclerosis I70.90 Anemia due to blood loss, acute D62 Abdominal pain R10.9 Aortic heart murmur I35.8 Tear of right rotator cuff M75.101 Primary osteoarthritis, 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 Diverticulosis K57.90 Abdominal pain R10.9 Fatigue R53.83 Right carpal tunnel syndrome G56.01 Sessile colonic polyp 02/17/18 K63.5 Primary osteoarthritis of both hands 10/23/16 M19.041, M19.042 Peripheral neuralgia M79.2 Obesity E66.9 Non-alcoholic fatty liver disease K76.0 Murmur, cardiac 10/23/16 R01.1 Lichen sclerosus et atrophicus of the vulva 12/27/15 N90.4 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 Family history of breast cancer in sister 12/27/15 Z80.3 Essential hypertension 08/26/13 I10 Cystocele, midline N81.11 Complete edentulism, unspecified K08.109 Allergic rhinitis J30.9 Medical History Medical History Alternating constipation and diarrhea Colonic diverticular abscess Dizzy Generalized osteoarthrosis L-S spine SOB (shortness of breath) Surgical History Surgical History Appendectomy Cholecystectomy (~1966) Colonoscopy - IV Sedation 2006 Colonoscopy - MAC (02/17/18) Extraction of cataract 01/24/15-LEFT 02/14/15 RIGHT Hemorrhoidal Banding (02/17/18) Tobacco Smoking/Tobacco Use Status: Never Passive smoking exposure: Yes Second hand exposure: Yes Alcohol Alcohol Intake: former Substance Use Substance use: Never Substance use type: does not use Vital Signs and Lab Results Vital Signs Most Recent Vital Signs in EMR: Most Recent Vital Signs Temp Pulse Resp BP Pulse Ox 36.1 C L 63 16 140/56 L 100 07/04/23 11:53 07/04/23 11:53 07/04/23 11:53 07/04/23 11:53 07/04/23 11:53 Lab Results Blood Type / Crossmatch: Patient ABO/Rh O Positive 06/11/23 Antibody Screen NEGATIVE 06/11/23 Crossmatch See Detail 06/11/23 Complete Blood Count: White Blood Count 5.91 10^3/uL (4.4-10.8) 06/30/23 08:45 Red Blood Count 2.96 10^6/uL (3.93-5.22) L 06/30/23 08:45 Hemoglobin 9.1 g/dL (11.2-15.7) L 06/30/23 08:45 Hematocrit 28.6 % (36.0-46.0) L 06/30/23 08:45 Platelet Count 143 10^3/uL (130-400) 06/30/23 08:45 Complete Metabolic Panel: Potassium 3.8 mmol/L (3.5-5.1) 06/09/23 14:00 Creatinine 1.3 mg/dL (0.55-1.02) H 06/09/23 14:00 Est GFR (CKD-EPI 2020) 40.80 (mL/min/1.73m2) 06/09/23 14:00 Liver Function Panel: No Data to Display Coagulation Panel: No Data to Display Cardiac Panel: No Data to Display Arterial Blood Gas: No Data to Display Venous Blood Gas: No Data to Display Pancreas Panel: No Data to Display Thyroid Panel: No Data to Display Infectious Disease: No Data to Display Blood Cultures: No Data to Display Toxicology Panel: No Data to Display Anesthesia Assessment and Plan Anesthesia History Personal History: No History of Anesthesia Complications Family History: No Family History of Anesthesia Complications Exercise Tolerance Exercise Tolerance: Metabolic Equivalents>4 Pertinent Negatives Pertinent Negatives: No Symptoms of GERD Cardiac & Pulmonary Exam Cardiac Exam: Normal S1/S2 Heart Sounds Pulmonary Exam: Clear Bilateral Breath Sounds Implantable Cardiac Device Does patient have a Pacemaker or an ICD?: No Airway Exam Known Difficult Airway: No Mallampati Class: 2 Mouth Opening: Normal (> 3cm) Thyromental Distance: Greater than 3 cm Neck Range of Motion: Full ROM Neck Circumference: Normal Teeth Condition: Normal Dentition ASA Classification ASA Score: ASA 3 Emergency Case?: No NPO Status NPO Status: NPO Clears >2 hours, Solids >8 hours Anesthesia Plan Resuscitation Status: Full Code Anesthesia Technique: General Anesthesia Airway Planned: Natural Airway Monitors Used: Standard Monitors
[2023-07-04 12:50] VITALS: BP 106/54; PULSE 65; RESP 16; TEMP 36; O2SAT 97
--- NOTE | 2023-07-04 13:07 | W.ANESPOSTOP ---
Postoperative Evaluation Date, Time and Location Date Performed: 07/04/23 Time Performed: 13:08 Patient Location: Day Surgery Unit Vital Signs Most Recent Imported Vital Signs: Most Recent Vital Signs Temp Pulse Resp BP Pulse Ox 36 C L 65 16 106/54 L 97 07/04/23 12:50 07/04/23 12:50 07/04/23 12:50 07/04/23 12:50 07/04/23 12:50 Assessment Mental Status: Awake (Alert & Oriented to Patient Baseline) Airway and Respiratory Function: Patent airway with normal (patient baseline) respiratory exam Cardiovascular Function: Hemodynamically Stable Hydration Status: Adequately Hydrated Nausea & Vomiting: No Nausea or Vomiting Pain: Pt. Denies Any Pain Peripheral Nerve Block: Patient did not receive a nerve block
[2023-07-04 13:25] VITALS: BP 135/60; PULSE 54; RESP 18; TEMP 36; O2SAT 99
== END 2023-07-04 13:50 | disposition home or self-care (01) ==
PROVIDERS: PCP Nurse Practitioner Family; Visit Provider Surgery
PROC: 0DJ68ZZ Inspection of Stomach, Via Natural or Artificial Opening Endoscopic (ICD-10-PCS; CPT 43235; principal; 2023-07-04 12:00)
DX: D50.9 Iron deficiency anemia, unspecified (principal); K29.70 Gastritis, unspecified, without bleeding; Z87.11 Personal history of peptic ulcer disease
CPT/HCPCS: 43239

== ENCOUNTER 2024-03-05 01:41 | Outpatient (CLI) | payer MEDICARE, SELFPAY ==
[2024-03-05 12:16] LABS: Abs Immature Grans 0.01 10^3/uL (0.0-0.06); Absolute Basophil Count 0.04 10^3/uL (0.0-0.2); Absolute Eosinophil Count 0.21 10^3/uL (0.0-0.7); Absolute Lymphocyte Count 0.92 10^3/uL (1.2-3.4); Absolute Monocyte Count 0.61 10^3/uL (0.1-0.8); Absolute Neutrophil Count 4.23 10^3/uL (1.2-6.7); Basophils % 0.7 %; Eosinophils % 3.5 %; HCT 24.8 % (36.0-46.0); HGB 7.6 g/dL (11.2-15.7); Immature Grans % 0.2 %; Lymphocytes % 15.3 %; MCH 27.8 pg (27.0-33.0); MCHC 30.6 % (32.0-36.0); MCV 91 fL (80-95); MPV 10.2 fL (8.0-11.0); Monocytes % 10.1 %; Neutrophils % 70.2 %; Platelet Count 204 10^3/uL (130-400); RBC 2.73 10^6/uL (3.93-5.22); RDW 14.5 % (11.7-14.6); WBC 6.02 10^3/uL (4.4-10.8)
[2024-03-05 12:40] LABS: ALT 14 U/L (14-59); AST 9 U/L (15-37); Albumin 2.9 g/dL (3.4-5.0); Alkaline Phosphatase 60 U/L (46-116); Anion Gap 9.8 mmol/L (3-11); BUN 25 mg/dL (7-18); Bilirubin, Total 0.3 mg/dL (0.2-1.0); CO2 26.2 mmol/L (21.0-32.0); CREATININE 1.4 mg/dL (0.55-1.02); Calcium 8.8 mg/dL (8.5-10.1); Chloride 108 mmol/L (98-107); Ferritin 25 ng/mL (8-252); Glucose 95 mg/dL (74-106); Potassium 3.8 mmol/L (3.5-5.1); Sodium 144 mmol/L (136-145); Total Protein 6.7 g/dL (6.4-8.2)
== END 2024-03-05 01:42 | disposition home or self-care (01) ==
LOC: LOS 01:41
PROVIDERS: PCP Nurse Practitioner Family; Visit Provider Nurse Practitioner Family
DX: D62 Acute posthemorrhagic anemia; K76.0 Fatty (change of) liver, not elsewhere classified
CPT/HCPCS: 36415; 80053; 82728; 85025

== ENCOUNTER 2024-03-16 01:22 | Outpatient (CLI) | payer MEDICARE, SELFPAY ==
[2024-03-16 12:42] LABS: HCT 26.2 % (36.0-46.0); HGB 7.8 g/dL (11.2-15.7); MCH 27.5 pg (27.0-33.0); MCHC 29.8 % (32.0-36.0); MCV 92 fL (80-95); MPV 10.2 fL (8.0-11.0); Platelet Count 191 10^3/uL (130-400); RBC 2.84 10^6/uL (3.93-5.22); RDW 15.1 % (11.7-14.6); RDW-SD 51.2 fL; WBC 5.69 10^3/uL (4.4-10.8)
== END 2024-03-16 01:23 | disposition home or self-care (01) ==
LOC: LOS 01:23
PROVIDERS: PCP Nurse Practitioner Family; Visit Provider Nurse Practitioner Family
DX: D64.9 Anemia, unspecified (principal)
CPT/HCPCS: 36415; 85027

== ENCOUNTER 2024-03-19 15:28 | Emergency (ER) | payer MEDICARE, SELFPAY ==
[2024-03-19] VITALS (25 sets, daily range): BP systolic 121–160; BP diastolic 37–59; PULSE 59–72; RESP 12–25; TEMP 37.1; O2SAT 98
--- NOTE | 2024-03-19 15:15 | RT.EKG_ITS ---
APPROVED REPORT Exam: Resting ECG Reason for Exam: Dyspnea Patient Location: E HR:69 bpm ECG Measurements Heart Rate 69 AXIS NE 171 P 61 QRSd 79 QRS 74 QT 394 T 26 QTc 422 Conclusion Sinus rhythm...normal P axis, V-rate 60- 99 Inferior infarct, old...Q >35mS, II III aVF Narrow complex normal sinus rhythm at a rate of 69. Normal axis. Intervals within normal limits. I nferior Q waves. Mild left lateral chest wall ST segment depressions and inferior ST segment flatten ing. No ST segment elevations. No prior for comparison.
[2024-03-19 16:01] LABS: Abs Immature Grans 0.02 10^3/uL (0.0-0.06); Absolute Basophil Count 0.03 10^3/uL (0.0-0.2); Absolute Lymphocyte Count 1.14 10^3/uL (1.2-3.4); Absolute Monocyte Count 0.51 10^3/uL (0.1-0.8); Absolute Neutrophil Count 5.07 10^3/uL (1.2-6.7); Basophils % 0.4 %; Eosinophils % 2.9 %; HCT 26.7 % (36.0-46.0); HGB 8.4 g/dL (11.2-15.7); Immature Grans % 0.3 %; Lymphocytes % 16.4 %; MCH 27.7 pg (27.0-33.0); MCHC 31.5 % (32.0-36.0); MCV 88 fL (80-95); MPV 9.9 fL (8.0-11.0); Monocytes % 7.3 %; Neutrophils % 72.7 %; Platelet Count 200 10^3/uL (130-400); RBC 3.03 10^6/uL (3.93-5.22); RDW 14.7 % (11.7-14.6); RDW-SD 47.7 fL; WBC 6.97 10^3/uL (4.4-10.8)
[2024-03-19 16:22] LABS: ALT 18 U/L (14-59); AST 12 U/L (15-37); Albumin 3.1 g/dL (3.4-5.0); Alkaline Phosphatase 69 U/L (46-116); Anion Gap 7.5 mmol/L (3-11); BUN 18 mg/dL (7-18); Bilirubin, Total 0.4 mg/dL (0.2-1.0); CO2 26.5 mmol/L (21.0-32.0); CREATININE 1.4 mg/dL (0.55-1.02); Calcium 9.1 mg/dL (8.5-10.1); Chloride 107 mmol/L (98-107); Glucose 141 mg/dL (74-106); Magnesium 1.8 mg/dL (1.8-2.4); NT-proBNP 500 pg/mL (<300); Potassium 3.8 mmol/L (3.5-5.1); Sodium 141 mmol/L (136-145); Total Protein 6.8 g/dL (6.4-8.2); Troponin I < 50 ng/L (< or =60)
[2024-03-19 16:24] LABS: TSH (W/Ref FT4) 1.45 uIU/mL (0.36-3.74)
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
--- NOTE | 2024-03-19 17:07 | DI.RAD_ITS ---
Exam(s) XR CHEST 2V PA LATERAL EXAM: XR CHEST 2V PA LATERAL CLINICAL HISTORY: shortness of breath TECHNIQUE: 2D digital imaging was performed of the chest. Two images were obtained. PA and lateral views were obtained. COMPARISON: CR RIGHT SHOULDER COMPLETE from 08/14/2016 FINDINGS: MEDIASTINUM: Normal. HEART: Normal. PULMONARY VASCULATURE: Normal. LUNGS: Clear. PLEURAL SPACE: No pleural effusion or pneumothorax. BONE:Within normal limits for the patient's age. OTHER FINDINGS:Normal. IMPRESSION: No acute pulmonary findings. DATA REPOSITORY: RADIATION DOSE DELIVERED:
--- NOTE | 2024-03-19 17:45 | NUR.NOTE ---
Nursing Note:PT needs follow up with PCP next week for ER follow up and dizziness. Grisel, ED
== END 2024-03-19 17:41 | disposition home or self-care (01) ==
PROVIDERS: Emergency Provider Physician Assistant; PCP Nurse Practitioner Family
DX: R42 Dizziness and giddiness (principal); D50.9 Iron deficiency anemia, unspecified; I10 Essential (primary) hypertension; Z79.02 Long term (current) use of antithrombotics/antiplatelets
CPT/HCPCS: 36415; 80053; 86850; 86900; 86901; 93005; 99285; 71046; 83735; 83880; 84443; 84484; 85025; 93010; 99284

== ENCOUNTER 2024-04-08 00:50 | Outpatient (CLI) | payer MEDICARE, SELFPAY ==
[2024-04-08 12:21] LABS: HCT 25.5 % (36.0-46.0); HGB 7.9 g/dL (11.2-15.7); MCH 27.6 pg (27.0-33.0); MCV 89 fL (80-95); MPV 10.5 fL (8.0-11.0); Platelet Count 212 10^3/uL (130-400); RBC 2.86 10^6/uL (3.93-5.22); RDW 14.8 % (11.7-14.6); RDW-SD 47.7 fL; WBC 6.09 10^3/uL (4.4-10.8)
== END 2024-04-08 00:51 | disposition home or self-care (01) ==
LOC: LOS 00:50
PROVIDERS: PCP Nurse Practitioner Family; Visit Provider Nurse Practitioner Family
DX: D50.9 Iron deficiency anemia, unspecified (principal)
CPT/HCPCS: 36415; 85027

== ENCOUNTER 2024-04-20 03:18 | Outpatient (CLI) | payer MEDICARE, SELFPAY ==
[2024-04-20 12:30] LABS: HCT 26.1 % (36.0-46.0); HGB 7.9 g/dL (11.2-15.7); MCH 27.8 pg (27.0-33.0); MCHC 30.3 % (32.0-36.0); MCV 92 fL (80-95); MPV 10.2 fL (8.0-11.0); Platelet Count 196 10^3/uL (130-400); RBC 2.84 10^6/uL (3.93-5.22); RDW 14.9 % (11.7-14.6); RDW-SD 50.8 fL; WBC 6.58 10^3/uL (4.4-10.8)
== END 2024-04-20 03:19 | disposition home or self-care (01) ==
PROVIDERS: PCP Nurse Practitioner Family; Visit Provider Nurse Practitioner Family
DX: D64.9 Anemia, unspecified (principal)
CPT/HCPCS: 36415; 85027

== ENCOUNTER 2024-05-07 09:56 | Outpatient (CLI) | payer MEDICARE, SELFPAY ==
[2024-05-07 16:16] LABS: HCT 25.6 % (36.0-46.0); MCHC 31.3 % (32.0-36.0); MCV 90 fL (80-95); Platelet Count 241 10^3/uL (130-400); RBC 2.86 10^6/uL (3.93-5.22); RDW-SD 45.7 fL; WBC 6.94 10^3/uL (4.4-10.8)
== END 2024-05-07 09:57 | disposition home or self-care (01) ==
LOC: LBO 09:56
PROVIDERS: PCP Nurse Practitioner Family; Visit Provider Nurse Practitioner Family
DX: D50.9 Iron deficiency anemia, unspecified (principal)
CPT/HCPCS: 36415; 85027

== ENCOUNTER → 2024-05-10 01:18 | Outpatient (CLI) | payer MEDICARE, SELFPAY ==
--- NOTE | 2024-05-10 08:30 | DI.US_ITS ---
APPROVED REPORT EXAM: Comprehensive 2D, Doppler, and color-flow Echocardiogram Patient Location: Out-Patient Professional Engineer: Nicho Kelley RDCS (AE) Indications: Murmur, SOB Conclusion Mild concentric left ventricular hypertrophy. Ejection fraction is 66%. Wall motion is normal Normal right ventricular size and function Both atria are normal in size Aortic valve is sclerotic and trileaflet. There is mild aortic stenosis. Peak gradient is 26, mean is 14 mmHg. Calculated aortic valve area is 1.5 cm??. There is mild aortic regurgitation There is no additional structural or hemodynamically significant valvular disease Wall motion Left Ventricle The left ventricle is normal size. The left ventricular systolic function is normal. The left ventric ular ejection fraction is within the normal range. Mild concentric left ventricular hypertrophy. Ther e is normal LV segmental wall motion. There is no ventricular septal defect visualized. LVEF is 66%. Right Ventricle The right ventricle is normal size. The right ventricular systolic function is normal. Atria The left atrium size is normal. The right atrium size is normal. The interatrial septum is intact wit h no evidence for an atrial septal defect. Aortic Valve Aortic valve is calcified. Aortic valve is trileaflet. Mild aortic stenosis. Peak aortic valve gradie nt is 26.12 mmHg. Highest mean aortic valve gradient is 13.87 mmHg. Calculated LORENE by the continuity equation is 1.5 cm2. Mild aortic regurgitation. Mitral Valve The mitral valve is normal in structure. No evidence of mitral valve stenosis. Trivial mitral valve r egurgitation noted. Tricuspid Valve The tricuspid valve is normal in structure. There is no tricuspid valve stenosis. Trace tricuspid reg urgitation. The RVSP is 29.4 mmHg. Pulmonic Valve The pulmonary valve is normal in structure. There is no pulmonic valvular stenosis. There is no pulmo fish valvular regurgitation. Great Vessels The aortic root is normal in size. The ascending aorta is normal in size. Aortic arch is normal in ca liber. IVC is normal in size and collapses >50% with inspiration. Pericardium There is no pericardial effusion. 2D Dimensions IVSD d PLAX 1.05 cm F: 0.6-1.0 Ao Root d 2.80 cm F: 2.7 - 3.3 LVPW d PLAX 1.05 cm F: 0.6 - 1.0 Ao Asc Diam d 2.87 cm F: 2.3 - 3.1 LVID d PLAX 3.87 cm F: 3.8 - 5.2 LVDs 2.49 cm F: 2.2 - 3.5 LV EF Teichholz 65.9 % FS 35.67 % LV EDV (Teich) 64.8 mL LV ESV (Teich) 22.1 mL Stroke Vol Index (Teich) 25.87 M-Mode TAPSE 2.68 cm (M/F) >1.7 Auto EF LV EDV A4C 82.0 mL LV EDV A2C 93.5 mL LV EDV BP 88.5 mL LV ESV A4C 27.7 mL LV ESV A2C 30.4 mL LV ESV BP 28.9 mL LVEF(%) A4C 66.2 % LVEF(%) A2C 67.5 % LVEF(%) BP 67.4 % LV SV A4C 54.3 ml LV SV A2C 63.1 ml LV SV BP 59.6 ml LV CO A4C 3.0 L/min LV CO A2C 2.7 L/min LV CO BP 2.8 L/min HR A4C 54.80 BPM HR A2C 42.71 BPM LV EDV Index (BP) LA Volume LA Length A4C 4.6 cm LA Length A2C 4.0 cm LA Area A4C s 13.05 cm2 LA Area A2C s 12.00 cm2 LA Vol A4C A-L 31.29 mL LA Vol A2C A-L 30.60 mL LA Vol Biplane A-L 33.3 mL LA Vol/BSA A4C A-L LA Vol/BSA A2C A-L LA Vol/BSA BP A-L 20.2 mL/m2 LA Vol A4C MOD 30.1 mL LA Vol A2C MOD 29.1 mL LA Vol BP MOD 31.8 mL RA Volume RA Area A4C 10.1 cm2 RA ESV A4C (A-L) 21.8mL RA Vol/BSA A4C A-L RA Length A4C 4.0 cm RA ESV A4C (MOD) 20.3mL LV Diastology MV E' medial 0.052 (>0.07 m/s) MV E Vmax 1.16 (0.4-1.3 m/s) MV E/E' MED 22.25 (<14) MV A Vmax 1.15 (0.4-1.3 m/s) MV E' lateral 0.055 (>0.1 m/s) E/A Ratio 1.0 MV E/E' LAT 21.06 (<14) MV E' Average 0.054 m/s MV E/E'(average) 21.64 Aortic Valve AoV Vmax 2.56 m/s LVOT Vmax 1.45 m/s AoV Peak Grad 39.9 mmHg LVOT Peak Grad 8.4 mmHg AoV Area (Vmax) 1.32 cm2 LVOT VTI 0.394 m AoV VTI 0.630 m LVOT Mean Grad 5.3 mmHg AoV Mean Kelechi. 1.76 m/s LVOT SV 91.45 mL AoV Mean Grad 13.9 mmHg LVOT Diam s 1.70 cm AoV Area (VTI) 1.45 cm2 AV Regurg Peak Gr. 53.65 mmHg Velocity Ratio 0.57 AR Decel [place] 1.8m/sec2 AR DT 1986 msec AR PHT 576 msec AR Vmax 3.66 m/s Mitral Valve MV DT 244 (160-240 msec) MV Vmax TIPS 1.31 m/s MV Mean Grad 3.0 (<2mmHg) MV VTI 0.548 m Pulmonary Valve PV Vmax 1.23 (0.5-1.5 m/s) RVOT Vmax 1.05 m/s PV Peak Grad 6.1 mmHg RVOT Peak Gr. 4.4 mmHg PV Mean Kelechi 0.88 m/s RVOT VTI 0.228 m PV Mean Grad 3.5 mmHg RVOT Mean Gr. 2.2 mmHg Tricuspid Valve RA Pressure 3.00 mmHg TR Vmax 2.57 m/s TR Peak Grad 26.4 mmHg RVSP (TR) 29.4 mmHg
== END ==
PROVIDERS: PCP Nurse Practitioner Family; Visit Provider Nurse Practitioner Family
DX: R01.1 Cardiac murmur, unspecified (principal)
CPT/HCPCS: 93306

== ENCOUNTER 2024-06-10 03:36 | Outpatient (CLI) | payer MEDICARE, SELFPAY ==
[2024-06-10 12:42] LABS: HCT 25.9 % (36.0-46.0); HGB 7.7 g/dL (11.2-15.7); MCH 27.5 pg (27.0-33.0); MCHC 29.7 % (32.0-36.0); MCV 93 fL (80-95); Platelet Count 223 10^3/uL (130-400); RDW 14.2 % (11.7-14.6); RDW-SD 48.6 fL; WBC 6.77 10^3/uL (4.4-10.8)
[2024-06-10 12:51] LABS: CREATININE 1.2 mg/dL (0.55-1.02); Calculated LDL 97 mg/dL (<100); Cholesterol 146 mg/dL (<200); Estimated GFR 44.64 (mL/min/1.73m2); HDL Cholesterol 39 mg/dL (40-60); Potassium 3.8 mmol/L (3.5-5.1); Triglyceride 53 mg/dL (<150)
== END 2024-06-10 03:37 | disposition home or self-care (01) ==
LOC: LOS 03:36
PROVIDERS: PCP Nurse Practitioner Family; Visit Provider Nurse Practitioner Family
DX: Z13.6 Encounter for screening for cardiovascular disorders; I10 Essential (primary) hypertension; D64.9 Anemia, unspecified
CPT/HCPCS: 36415; 80061; 85027; 82565; 84132

== ENCOUNTER 2024-06-23 02:44 | Outpatient (CLI) | payer MEDICARE, SELFPAY ==
[2024-06-23 12:30] LABS: HCT 27.4 % (36.0-46.0); HGB 8.4 g/dL (11.2-15.7); MCH 28.2 pg (27.0-33.0); MCHC 30.7 % (32.0-36.0); MCV 92 fL (80-95); MPV 9.8 fL (8.0-11.0); Platelet Count 279 10^3/uL (130-400); RBC 2.98 10^6/uL (3.93-5.22); RDW 14.4 % (11.7-14.6); RDW-SD 47.7 fL; WBC 8.38 10^3/uL (4.4-10.8)
== END 2024-06-23 02:45 | disposition home or self-care (01) ==
LOC: LOS 02:44
PROVIDERS: PCP Nurse Practitioner Family; Visit Provider Nurse Practitioner Family
DX: D64.9 Anemia, unspecified (principal)
CPT/HCPCS: 36415; 85027

== ENCOUNTER 2024-08-18 01:11 | Outpatient (RCR) | payer MEDICARE, SELFPAY ==
[2024-08-04] MEDS: IRON SUCROSE COMPLEX 200 MG in Normal Saline 100 ML 440 MG IVPB (10:04)
[2024-08-04] MEDS: Normal Saline Flush 10 ML SYR IVP (10:04)
[2024-08-11] MEDS: IRON SUCROSE COMPLEX 200 MG in Normal Saline 100 ML 440 MG IVPB (10:12)
[2024-08-11] MEDS: Normal Saline Flush 10 ML SYR IVP (10:12)
[2024-08-18] MEDS: IRON SUCROSE COMPLEX 200 MG in Normal Saline 100 ML 440 MG IVPB (10:03)
[2024-08-18] MEDS: Normal Saline Flush 10 ML SYR IVP (10:04)
== END 2024-08-19 23:59 | disposition home or self-care (01) ==
LOC: INF 01:11
PROVIDERS: PCP Nurse Practitioner Family; Visit Provider Nurse Practitioner Family
DX: D50.9 Iron deficiency anemia, unspecified
CPT/HCPCS: 96365; J1756

== ENCOUNTER 2024-08-24 10:01 | Inpatient (IN) | payer MEDICARE, SELFPAY ==
[2024-08-24] VITALS (40 sets, daily range): BP systolic 111–163; BP diastolic 40–101; PULSE 63–104; RESP 11–28; TEMP 36.4–37.1; O2SAT 96–100
--- NOTE | 2024-08-24 10:45 | DI.CT_ITS ---
Exam(s) CT CHEST/ABD/PEL W EXAM: CT CHEST/ABD/PEL W CLINICAL HISTORY: nausea, epigastric pain, weight loss TECHNIQUE: Imaging Protocol: Axial computed tomography images with coronal and sagittal reformatted images were created and reviewed. Computer aided detection (CAD) was utilized. CONTRAST MATERIAL: Intravenous: Omnipaque 350 contrast volume:100 mL Oral: No COMPARISON: CT CT ABDOMEN PELVIS W from 07/06/[address] ABDOMEN PELVIS CTA from 11/20/2020 FINDINGS: CHEST: Tracheobronchial tree: Patent where visualized. No evidence of bronchiectasis. Pulmonary parenchyma: No consolidation or dominant measurable mass. Mild atelectasis is seen in the l murtaza bases. Visualized thyroid gland: Unremarkable. Mediastinum and Kaur: No dominant adenopathy or fluid collection. The esophagus is unremarkable. Pleura: There is a tiny right pleural effusion. No left pleural effusion. No pneumothorax. Heart: The heart is not dilated. Three vessel coronary artery calcification is present. There is a t iny pericardial effusion. There is no evidence of right heart strain. Pulmonary arteries: There are filling defects in branches of the pulmonary artery to the right and le ft lower lobes. (Series 11, image 100 and series 11, image 90). The findings are consistent with pu lmonary emboli. No saddle embolus is present. Aorta: Thoracic aorta non-dilated. Atherosclerotic calcification is present. There is no evidence of dissection. Lymph nodes: Within normal limits. Soft tissues: Unremarkable. Bones:Within normal limits for the patient's age. ABDOMEN: Liver: Normal density. There is a tiny hypodensity in the left lobe of the liver. It is too small fo r further characterization but likely reflects a small cyst. No suspicious hepatic lesions are prese nt. Portal, Superior Mesenteric, and Splenic Veins: Unremarkable. Gallbladder and Biliary Tract: The gallbladder is absent. There is no significant biliary ductal dil atation. Pancreas: Normal density, no abnormal calcifications or inflammatory process. Spleen: Normal. Adrenals: No masses seen. Kidneys: Normal size, contour and axis. No radiodense stones or obstructive uropathy. No masses seen. Abdominal Aorta: Abdominal portion non-dilated. Atherosclerotic calcification is present. The findin gs are marked at the origin of the superior mesenteric artery and the renal arteries. Veins: The left internal iliac vein is enlarged and unopacified. The findings are suspicious for an a thrombus. Bowel: There is diverticulosis present in the colon. There is circumferential thickening of the wall of the ascending colon extending into the cecum. It stranding is seen in the surrounding soft tissu es. There is an air-fluid collection posterior to the cecum measuring 3.1 x 3.5 x 4.3 cm. There is contrast within the collection consistent with a communication with the bowel. This may represent an abscess or an enlarged appendix. There is a diverticulum in the region on the prior examination fro 2020. A normal appendix is not visualized. Peritoneal Cavity: No ascites, collection or mesenteric inflammatory response. No free air. Lymph Nodes: Within normal limits. Bones: Within normal limits for the patient's age. Soft Tissues: Unremarkable. PELVIS: Bladder: The urinary bladder is incompletely distended limiting evaluation. There is air seen within the urinary bladder. This may be due to recent instrumentation. Please correlate clinically. Reproductive Organs: Unremarkable as visualized. Lymph Nodes: Within normal limits. Bones: Within normal limits. IMPRESSION: 1. Pulmonary emboli in branches to the pulmonary arteries in the lower lobes. No evidence of right h eart failure. 2. In the pelvis, there are findings suspicious for a thrombus in the left internal iliac vein. 3. Circumferential thickening of the wall of the ascending colon and cecum. Stranding in the surroun ding soft tissues. There is an air-fluid collection seen posterior to the cecum measuring 3.1 x 3.5 x 4.3 cm. There is contrast within the collection consistent with a communication with the bowel. D iagnostic considerations include colonic neoplasm, but acute diverticulitis or acute appendicitis jennie uld be considered. No free air. 4. Air seen within the urinary bladder. This may reflect recent catheterization. Please correlate c linically. 5. Findings were discussed with Ghazal Lam at 2:20 p.m. on 08/24/2024. RADIATION DOSE DELIVERED: 260.23mGy.cm Total DLP DATA REPOSITORY: All CT scans at this facility are submitted to the National Radiology Data Registry (NRDR) Dose Index Registry (DIR) with the [employer] (ACR). RADIATION OPTIMIZATION: All CT scans at this facility use at least one of these dose optimization te chniques: automated exposure control; mA and/or kV adjustment per patient size (includes targeted exa ms where dose is matched to clinical indication); or iterative reconstruction.
[2024-08-24 11:29] LABS: Abs Immature Grans 0.07 10^3/uL (0.0-0.06); Absolute Eosinophil Count 0.03 10^3/uL (0.0-0.7); Absolute Lymphocyte Count 0.95 10^3/uL (1.2-3.4); Absolute Monocyte Count 0.79 10^3/uL (0.1-0.8); Basophils % 0.4 %; Eosinophils % 0.3 %; HCT 24.1 % (36.0-46.0); HGB 7.5 g/dL (11.2-15.7); Immature Grans % 0.6 %; Lymphocytes % 8.4 %; MCH 27.6 pg (27.0-33.0); MCHC 31.1 % (32.0-36.0); MCV 89 fL (80-95); MPV 9.2 fL (8.0-11.0); Neutrophils % 83.3 %; Platelet Count 271 10^3/uL (130-400); RBC 2.72 10^6/uL (3.93-5.22); RDW 16.4 % (11.7-14.6); RDW-SD 52.1 fL; WBC 11.32 10^3/uL (4.4-10.8)
[2024-08-24 11:31] LABS: Absolute Basophil Count 0.05 10^3/uL (0.0-0.2); Absolute Neutrophil Count 9.43 10^3/uL (1.2-6.7)
[2024-08-24 12:03] LABS: ALT 29 U/L (14-59); AST 24 U/L (15-37); Albumin 1.7 g/dL (3.4-5.0); Alkaline Phosphatase 90 U/L (46-116); Amylase 52 U/L (25-115); Anion Gap 8.1 mmol/L (3-11); BUN 23 mg/dL (7-18); Bilirubin, Total 0.44 mg/dL (0.2-1.0); CO2 21.9 mmol/L (21.0-32.0); CREATININE 1.8 mg/dL (0.55-1.02); Calcium 8.6 mg/dL (8.5-10.1); Chloride 108 mmol/L (98-107); Estimated GFR 27.44 (mL/min/1.73m2); Glucose 121 mg/dL (74-106); Lipase 23 U/L (16-77); Sodium 138 mmol/L (136-145); Total Protein 6.1 g/dL (6.4-8.2)
[2024-08-24] MEDS: Breeza Beverage 473 ML BTL PO ×2 (12:15→12:17)
[2024-08-24] MEDS: Omnipaque 350 MG/ML 50 ML BTL PO (12:16)
[2024-08-24] MEDS: Omnipaque 350 MG/ML 500 ML BTL-Imaging package 100 ML IJ (13:34)
[2024-08-24] MEDS: Normal Saline - Diluent 50 ML VIAL IJ (13:38)
[2024-08-24 14:08] LABS: Bilirubin Negative (Negative); Blood Moderate (Negative); Clarity Cloudy (Clear); Glucose Negative (Negative); Ketones Negative (Negative); Leukocyte Esterase Small (Negative); Nitrite Negative (Negative); Urobilinogen 0.2 mg/dL (Up to 0.2); pH 5.5 (5-8)
[2024-08-24 14:23] LABS: WBC >50 HPF (0-5)
[2024-08-24 14:24] LABS: Bacteria Many HPF (Negative); C & S Indicated? Yes; Casts Negative LPF (Negative); Crystals Negative HPF (Negative); Epithelial Cells Few HPF (Negative); Mucus Negative (Negative); RBC 0-2 HPF (0-2)
[2024-08-24 14:51] LABS: NT-proBNP 953 pg/mL (<300); Troponin I 6 ng/L (<or=51)
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
[2024-08-24 15:50] LABS: Lactate 1.1 mmol/L (0.6-1.4)
--- NOTE | 2024-08-24 16:02 | ED.PROG_ITS ---
Date of service: 08/24/24 Time of Service: 16:02 Medical Decision Making This dictation utilizes [id number] dictation software and may contain unedited grammatical errors. Patient seen in signout from Ghazal Lam PA-C, please see her complete note. Essentially this 84-year-old female with chronic abdominal pain for the past year has been losing weight and having poor p.o. intake, patient has had diarrhea and nausea, has a history of chronic anemia. Patient is a DNR status. CT chest/ABD/pelvis was performed today which shows 2 PEs as well as an iliac thrombus that is likely source of PEs, it also shows wall thickening of the colon with the mass and possible adjacent abscess possibly needing drainage. Dr. Bates of our surgery department was consulted, our anesthesia department would be incapable of taking care of this patient. Pending [facility] [place] consult, +/- vascular surgery consult. Patient is about to receive 1 unit of packed red blood cells for anemia with a hemoglobin of 7.5, has not been initiated on anticoagulants as of yet. Patients' medical history: [ ]. Family and social history: [ ]. Pertinent exam findings / vital signs include prior provider noted some blood per stool. Differential / pathologies of concern include [ ]. Diagnostic studies of: -Review prior labs- -CBC shows a mild leukocytosis of 11.3, profound anemia with a hemoglobin of 7.5 and hematocrit of 24.1, platelets 271 -Lactate is 1.1 -CMP shows an acute kidney injury with creatinine of 1.8 and a GFR of 27.4 -Troponin is negative, BNP is 953 -Lipase within normal limits -TSH within normal limits -UA shows UTI and moderate blood -CTA of the chest show bilateral lower lobe pulmonary emboli without evidence of right heart failure -Thrombus in left internal iliac vein -There is a possible abscess in the abdomen concerning for colonic neoplasm or diverticulum or acute appendicitis -air in the urinary bladder with UTI Interventions of: -1 unit of packed red blood cells, IV pip-tazo. -Consulted [facility] [place] Dr. Evans at 0028- feels no abscess, does warrant GI consult, Romance-rectal consult, and vascular consult, recommends starting heparin. Listed for tomorrow at [facility] [place]. -Spoke to Dr. Galindo @ [phone], agrees for admit tomorrow. -Spoke with [facility], they could list for tomorrow or the next day, accepting as Dr. Montez @ [phone] -Spoke to Dr. Castaneda, will accept for [facility] until patient can be transferred to higher care for consults tomorrow. ED Course/Assessment/Plan: 84-year-old female was signed out to me, found to have PEs, mass of the cecum with questionable abscess versus normal radiological appearance of cancer according to [facility] [place] surgery. Patient's vitals are stable, has worse than normal chronic anemia was given 1 unit of packed red blood cells, started on heparin for bilateral PEs found on CT, given pip-tazo for empiric coverage of intra- abdominal abscess as well as UTI. I spoke with Dr. Villatoro accepted the patient to temporize overnight until he can be transferred to a higher level of care for their multidisciplinary specialty consults Disposition of Intra-abdominal abscess, pulmonary emboli, acute thromboembolism of iliac vein, anemia. Patient verbalized understanding of the plan and return to ED criteria and engaged in shared decision making. Medical Records Medical records reviewed: Yes I reviewed the patient's medical records. Imaging Data Radiologic Study: Attestation: I personally reviewed and interpreted this imaging study as follows: Imaging: CT Scan Radiologist's impression: EXAM: CT CHEST/ABD/PEL W CLINICAL HISTORY: nausea, epigastric pain, weight loss TECHNIQUE: Imaging Protocol: Axial computed tomography images with coronal and sagittal reformatted images were created and reviewed. Computer aided detection (CAD) was utilized. CONTRAST MATERIAL: Intravenous: Omnipaque 350 contrast volume:100 mL Oral: No COMPARISON: CT CT ABDOMEN PELVIS W from 07/06/[address] ABDOMEN PELVIS CTA from 11/20/2020 FINDINGS: CHEST: Tracheobronchial tree: Patent where visualized. No evidence of bronchiectasis. Pulmonary parenchyma: No consolidation or dominant measurable mass. Mild atelectasis is seen in the lung bases. Visualized thyroid gland: Unremarkable. Mediastinum and Kaur: No dominant adenopathy or fluid collection. The esophagus is unremarkable. Pleura: There is a tiny right pleural effusion. No left pleural effusion. No pneumothorax. Heart: The heart is not dilated. Three vessel coronary artery calcification is present. There is a tiny pericardial effusion. There is no evidence of right heart strain. Pulmonary arteries: There are filling defects in branches of the pulmonary artery to the right and left lower lobes. (Series 11, image 100 and series 11, image 90). The findings are consistent with pulmonary emboli. No saddle embolus is present. Aorta: Thoracic aorta non-dilated. Atherosclerotic calcification is present. There is no evidence of dissection. Lymph nodes: Within normal limits. Soft tissues: Unremarkable. Bones:Within normal limits for the patient's age. ABDOMEN: Liver: Normal density. There is a tiny hypodensity in the left lobe of the liver. It is too small for further characterization but likely reflects a small cyst. No suspicious hepatic lesions are present. Portal, Superior Mesenteric, and Splenic Veins: Unremarkable. Gallbladder and Biliary Tract: The gallbladder is absent. There is no significant biliary ductal dilatation. Pancreas: Normal density, no abnormal calcifications or inflammatory process. Spleen: Normal. Adrenals: No masses seen. Kidneys: Normal size, contour and axis. No radiodense stones or obstructive uropathy. No masses seen. Abdominal Aorta: Abdominal portion non-dilated. Atherosclerotic calcification is present. The findings are marked at the origin of the superior mesenteric artery and the renal arteries. Veins: The left internal iliac vein is enlarged and unopacified. The findings are suspicious for an a thrombus. Bowel: There is diverticulosis present in the colon. There is circumferential thickening of the wall of the ascending colon extending into the cecum. It stranding is seen in the surrounding soft tissues. There is an air-fluid collection posterior to the cecum measuring 3.1 x 3.5 x 4.3 cm. There is contrast within the collection consistent with a communication with the bowel. This may represent an abscess or an enlarged appendix. There is a diverticulum in the region on the prior examination from 2020. A normal appendix is not visualized. Peritoneal Cavity: No ascites, collection or mesenteric inflammatory response. No free air. Lymph Nodes: Within normal limits. Bones: Within normal limits for the patient's age. Soft Tissues: Unremarkable. PELVIS: Bladder: The urinary bladder is incompletely distended limiting evaluation. Th ere is air seen within the urinary bladder. This may be due to recent instrumentation. Please correlate clinically. Reproductive Organs: Unremarkable as visualized. Lymph Nodes: Within normal limits. Bones: Within normal limits. IMPRESSION: 1. Pulmonary emboli in branches to the pulmonary arteries in the lower lobes. No evidence of right heart failure. 2. In the pelvis, there are findings suspicious for a thrombus in the left internal iliac vein. 3. Circumferential thickening of the wall of the ascending colon and cecum. Stranding in the surrounding soft tissues. There is an air-fluid collection seen posterior to the cecum measuring 3.1 x 3.5 x 4.3 cm. There is contrast within the collection consistent with a communication with the bowel. Diagnostic considerations include colonic neoplasm, but acute diverticulitis or acute appendicitis should be considered. No free air. 4. Air seen within the urinary bladder. This may reflect recent catheterization. Please correlate clinically. 5. Findings were discussed with Ghazal Lam at 2:20 p.m. on 08/24/2024. Lab Data Lab results reviewed: Yes I reviewed the patient's lab results. Labs: 08/24/24 15:25 Blood Blood Culture - Pending 08/24/24 14:47 Blood Blood Culture - Pending 08/24/24 13:35 Urine - Reflex from Ua Urine Culture - Pending Laboratory Tests Range/Units 08/24/24 08/24/24 08/24/24 11:20 13:35 15:15 WBC (4.4-10.8) 10^3/uL 11.32 H RBC (3.93-5.22) 10^6/uL 2.72 L Hgb (11.2-15.7) g/dL 7.5 L Hct (36.0-46.0) % 24.1 L MCV (80-95) fL 89 MCH (27.0-33.0) pg 27.6 MCHC (32.0-36.0) % 31.1 L RDW (11.7-14.6) % 16.4 H Plt Count (130-400) 10^3/uL 271 MPV (8.0-11.0) fL 9.2 Immature Gran % % 0.6 Neutrophils % % 83.3 Lymphocytes % % 8.4 Monocytes % % 7.0 Eosinophils % % 0.3 Basophils % % 0.4 Nucleated RBC % (0.0-0.3) % 0.0 Absolute Neutrophils (1.2-6.7) 10^3/uL 9.43 H Absolute Lymphocytes (1.2-3.4) 10^3/uL 0.95 L Absolute Monocytes (0.1-0.8) 10^3/uL 0.79 Absolute Eosinophils (0.0-0.7) 10^3/uL 0.03 Absolute Basophils (0.0-0.2) 10^3/uL 0.05 VBG Lactate (0.6-1.4) mmol/L 1.1 Sodium (136-145) mmol/L 138 Potassium (3.5-5.1) mmol/L 4.0 Chloride (98-107) mmol/L 108 H Carbon Dioxide (21.0-32.0) mmol/L 21.9 Anion Gap (3-11) mmol/L 8.1 BUN (7-18) mg/dL 23 H Creatinine (0.55-1.02) mg/dL 1.8 H Est GFR (CKD-EPI 2020) (mL/min/1.73m2) 27.44 Glucose (74-106) mg/dL 121 H Calcium (8.5-10.1) mg/dL 8.6 Magnesium (1.8-2.4) mg/dL 2.0 Total Bilirubin (0.2-1.0) mg/dL 0.44 AST (15-37) U/L 24 ALT (14-59) U/L 29 Alkaline Phosphatase (46-116) U/L 90 Troponin I (<or=51) ng/L 6 NT-Pro-B Natriuret Pep (<300) pg/mL 953 H Total Protein (6.4-8.2) g/dL 6.1 L Albumin (3.4-5.0) g/dL 1.7 L Amylase (25-115) U/L 52 Lipase (16-77) U/L 23 TSH (0.36-3.74) uIU/mL 0.70 Urine Color (Yellow) Yellow Urine Clarity (Clear) Cloudy Urine pH (5-8) 5.5 Ur Specific [place] (1.005-1.025) 1.020 Urine Protein (Neg-Trace) mg/dL 30 H Urine Ketones (Negative) mg/dL Negative Urine Blood (Negative) Moderate H Urine Nitrite (Negative) Negative Urine Bilirubin (Negative) Negative Urine Urobilinogen (Up to 0.2) mg/dL 0.2 Ur Leukocyte Esterase (Negative) Small H Urine RBC (0-2) HPF 0-2 Urine WBC (0-5) HPF >50 H Ur Epithelial Cells (Negative) HPF Few Urine Crystals (Negative) HPF Negative Urine Bacteria (Negative) HPF Many Urine Casts (Negative) LPF Negative Urine Mucus (Negative) Negative Ur Culture Indicated? Yes Urine Glucose (Negative) mg/dL Negative Crossmatch See Detail Quality:SDOH Health Related Social Needs: No Data to Display Discharge Plan Disposition Patient Disposition: Admit to [facility] Condition: Stable Discharge Details Chief Complaint: Abd Prob Clinical Impression: Intra-abdominal abscess, Pulmonary emboli, Acute thromboembolism of iliac vein, Anemia Primary Care Provider: Martin Estrada ED Provider: Saeed Felton Home Meds and New Rx's Prescriptions: No Action oxybutynin chloride 5 mg tablet extended release 24hr 5 mg PO DAILY Qty: 90 3RF losartan 100 mg tablet 100 mg PO DAILY Qty: 90 3RF PreserVision AREDS-2 250-90-40-1 mg capsule 1 tab PO BID Qty: 1 0RF omeprazole 20 mg capsule,delayed release(DR/EC) 20 mg PO DAILY Qty: 90 3RF acetaminophen [Tylenol Arthritis] 650 MG tablet extended release 1 tab PO DAILY PRN SYSTANE 0.3-0.4% EYE DROPS 5 ML drops 1 drp Ophthalmic PRN cholecalciferol (vitamin D3) 25 mcg (1,000 unit) capsule 1,000 unit PO DAILY Qty: 90 12RF clopidogrel 75 mg tablet 75 mg PO DAILY AM Qty: 90 3RF spironolactone 25 mg tablet 25 mg PO DAILY Qty: 90 3RF ferrous sulfate 325 mg (65 mg iron) tablet 325 mg PO DAILY Qty: 90 3RF Blink Gel Tears 0.25 % Drops,Gel 1 drp OPHTHALMIC (EYE) BID sucralfate 1 gram tablet 1 g PO BID Patient Comments: TAKE ONE TABLET BY MOUTH BEFORE MEALS AND AT BEDTIME INSTRUCTED
[2024-08-24] MEDS: PIPERACILLIN/TAZO 3.375 GM in Normal Saline 50 ML IVPB (17:45)
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
[2024-08-24] MEDS: Heparin in 0.45% NaCl 25,000 UNIT/250 ML BAG 10 UNIT IVINF (19:48)
[2024-08-24 19:58] LABS: Source Nasal/Nares
[2024-08-24 20:13] LABS: Abs Immature Grans 0.09 10^3/uL (0.0-0.06); Absolute Basophil Count 0.05 10^3/uL (0.0-0.2); Absolute Eosinophil Count 0.08 10^3/uL (0.0-0.7); Absolute Lymphocyte Count 1.44 10^3/uL (1.2-3.4); Absolute Monocyte Count 0.68 10^3/uL (0.1-0.8); Absolute Neutrophil Count 7.13 10^3/uL (1.2-6.7); Basophils % 0.5 %; Eosinophils % 0.8 %; HCT 25.8 % (36.0-46.0); HGB 8.2 g/dL (11.2-15.7); Lymphocytes % 15.2 %; MCH 26.5 pg (27.0-33.0); MCHC 31.8 % (32.0-36.0); MCV 83 fL (80-95); MPV 8.9 fL (8.0-11.0); Monocytes % 7.2 %; Neutrophils % 75.3 %; Platelet Count 240 10^3/uL (130-400); RDW 19.2 % (11.7-14.6); RDW-SD 57.9 fL; WBC 9.47 10^3/uL (4.4-10.8)
[2024-08-24 20:13] LABS: INR 1.2 (0.9-1.1); Prothrombin Time 12.1 sec (9.1-11.1)
[2024-08-24] MEDS: Sucralfate 1 GM TAB PO (20:17)
--- NOTE | 2024-08-24 20:18 | NUR.NOTE ---
Pt has hematechezia. Has known ulcer. Had a stool when on external urinary catheter device, that was drawn into device. Noticed this when I took over care and performed bedside assessment on pt. Pt blood products had been finished for some time, reported by previous RN. This was DC'd. Pt has orders for DVT protocol heparin bolus then infusion per protocol. Provider notified of stool, came into room and viewed this. Would still like Heparin protocol followed and stated we would keep close eye on vitals and would discuss with hospitalist. Provider confirmed order. Heparin initiated per order. Education provided to pt to monitor her stools as well when she goes to the floor. be reported to floor RN. Daniel Lewis Note:
[2024-08-24 20:34] LABS: COVID-19 PCR Negative (Negative)
--- NOTE | 2024-08-24 21:17 | W.PC.ACHO ---
Registration Status: Primary Language: Preferred Language: ED Information & Data Chief Complaint Abd Prob 08/24/24 15:48 Triage Note patient here with abdominal 08/24/24 10:10 pain LRQ (since 2022), is losing weight, poor po intake (Does not have dx after workup by pcp), has scheduled CT of abdomen on . Patient has diarrhea frequently. Patient is nauseous. Pain is always there. Medical / Surgical History (Last Reviewed 08/24/24 @ 19:15 by Toby Castaneda) SOB (shortness of breath) Alternating constipation and diarrhea Colonic diverticular abscess Generalized osteoarthrosis (Last Reviewed 08/24/24 @ 19:15 by Toby Castaneda) Hemorrhoidal Banding (02/17/18) Colonoscopy - MAC (02/17/18) Colonoscopy - IV Sedation Cholecystectomy (~1965) Extraction of cataract Appendectomy Most Recent Vital Signs Temperature 37.1 C 08/24/24 17:41 Temperature Source Oral 08/24/24 10:10 Pulse 66 08/24/24 20:02 Pulse 67 08/24/24 20:10 Respiratory Rate 16 08/24/24 20:10 Respiratory Effort Normal, Non-Labored, Short of Breath 08/24/24 10:14 Blood Pressure 135/43 L 08/24/24 20:02 Blood Pressure Mean 67 08/24/24 20:02 Blood Pressure Position Sitting 08/24/24 10:10 Pulse Oximetry 98 08/24/24 20:10 Oxygen Delivery Method Room Air 08/24/24 17:41 Oxygen Flow Rate 0 08/24/24 17:41 Pain Level 5 08/24/24 10:14 Allergies amlodipine Allergy (Intermediate, Verified 08/24/24 10:17) SWELLING THROAT loratadine Allergy (Mild, Verified 08/24/24 10:17) HIVES rabeprazole Allergy (Unknown, Verified 08/24/24 10:17) Unknown unknown shrimp Allergy (Verified 08/24/24 10:17) Other (See Comment) Throat swelling, per pt. chlorthalidone Adverse Reaction (Intermediate, Verified 08/24/24 10:17) Headache and general unwellness latex Adverse Reaction (Intermediate, Verified 08/24/24 10:17) Skin Rash codeine Adverse Reaction (Mild, Verified 08/24/24 10:17) SEVERE STOMACH PAIN lisinopril Adverse Reaction (Mild, Verified 08/24/24 10:17) COUGH onions Allergy (Uncoded 08/24/24 10:17) sneeze and spice Precautions Isolation Standard precaution 08/24/24 10:14 Active Medications Generic Name Dose Route Start Last Admin Trade Name Lulu PRN Reason Stop Dose Admin Heparin Sodium/Sodium Chloride 25,000 unit in 250 mls @ 0 mls/hr 08/24/24 18:30 08/24/24 19:48 IVINF 10 mls/hr INFUSION HARPREET 10 mls/hr Administration Protocol Per Protocol Iohexol 50 ml 08/24/24 13:00 08/24/24 12:16 Omnipaque 350 Mg/Ml 50 Ml Btl PO 09/23/24 23:59 50 ml DIRECTED HARPREET Administration Iohexol 100 ml 08/24/24 13:45 08/24/24 13:34 Omnipaque 350 Mg/Ml 500 Ml Btl-Imaging Package IJ 09/23/24 23:59 100 ml DIRECTED HARPREET Administration Sucralfate 1 gm 08/24/24 20:00 08/24/24 20:17 Sucralfate 1 Gm Tab PO 1 gm BID HARPREET Administration IV IV Catheter Type [Left Saline Lock Antecubital] IV Catheter Gauge [Left 18 Antecubital] Diagnostics 08/24/24 08/24/24 08/24/24 Range/Units 22:00 20:07 19:50 WBC Pending 9.47 (4.4-10.8) 10^3/uL RBC Pending 3.10 L (3.93-5.22) 10^6/uL Hgb Pending 8.2 L (11.2-15.7) g/dL Hct Pending 25.8 L (36.0-46.0) % MCV Pending 83 D (80-95) fL MCH Pending 26.5 L (27.0-33.0) pg MCHC Pending 31.8 L (32.0-36.0) % RDW Pending 19.2 H (11.7-14.6) % Plt Count Pending 240 (130-400) 10^3/uL MPV Pending 8.9 (8.0-11.0) fL Immature Gran % 1.0 % Neutrophils % 75.3 % Lymphocytes % 15.2 % Monocytes % 7.2 % Eosinophils % 0.8 % Basophils % 0.5 % Nucleated RBC % 0.0 (0.0-0.3) % Absolute Neutrophils 7.13 H (1.2-6.7) 10^3/uL Absolute Lymphocytes 1.44 (1.2-3.4) 10^3/uL Absolute Monocytes 0.68 (0.1-0.8) 10^3/uL Absolute Eosinophils 0.08 (0.0-0.7) 10^3/uL Absolute Basophils 0.05 (0.0-0.2) 10^3/uL PT (9.1-11.1) sec INR (0.9-1.1) APTT (23.6-32.8) sec VBG Lactate (0.6-1.4) mmol/L Sodium (136-145) mmol/L Potassium (3.5-5.1) mmol/L Chloride (98-107) mmol/L Carbon Dioxide (21.0-32.0) mmol/L Anion Gap (3-11) mmol/L BUN (7-18) mg/dL Creatinine (0.55-1.02) mg/dL Est GFR (CKD-EPI 2020) (mL/min/1.73m2) Glucose (74-106) mg/dL Calcium (8.5-10.1) mg/dL Magnesium (1.8-2.4) mg/dL Total Bilirubin (0.2-1.0) mg/dL AST (15-37) U/L ALT (14-59) U/L Alkaline Phosphatase (46-116) U/L Troponin I (<or=51) ng/L NT-Pro-B Natriuret Pep (<300) pg/mL Total Protein (6.4-8.2) g/dL Albumin (3.4-5.0) g/dL Amylase (25-115) U/L Lipase (16-77) U/L TSH (0.36-3.74) uIU/mL Urine Color (Yellow) Urine Clarity (Clear) Urine pH (5-8) Ur Specific [place] (1.005-1.025) Urine Protein (Neg-Trace) mg/dL Urine Ketones (Negative) mg/dL Urine Blood (Negative) Urine Nitrite (Negative) Urine Bilirubin (Negative) Urine Urobilinogen (Up to 0.2) mg/dL Ur Leukocyte Esterase (Negative) Urine RBC (0-2) HPF Urine WBC (0-5) HPF Ur Epithelial Cells (Negative) HPF Urine Crystals (Negative) HPF Urine Bacteria (Negative) HPF Urine Casts (Negative) LPF Urine Mucus (Negative) Ur Culture Indicated? Urine Glucose (Negative) mg/dL COVID-19 Source Nasal/Nares SARS-CoV-2 (PCR) Negative (Negative) ABO/Rh Antibody Screen Crossmatch 08/24/24 08/24/24 08/24/24 Range/Units 19:37 15:15 13:35 WBC (4.4-10.8) 10^3/uL RBC (3.93-5.22) 10^6/uL Hgb (11.2-15.7) g/dL Hct (36.0-46.0) % MCV (80-95) fL MCH (27.0-33.0) pg MCHC (32.0-36.0) % RDW (11.7-14.6) % Plt Count (130-400) 10^3/uL MPV (8.0-11.0) fL Immature Gran % % Neutrophils % % Lymphocytes % % Monocytes % % Eosinophils % % Basophils % % Nucleated RBC % (0.0-0.3) % Absolute Neutrophils (1.2-6.7) 10^3/uL Absolute Lymphocytes (1.2-3.4) 10^3/uL Absolute Monocytes (0.1-0.8) 10^3/uL Absolute Eosinophils (0.0-0.7) 10^3/uL Absolute Basophils (0.0-0.2) 10^3/uL PT 12.1 H (9.1-11.1) sec INR 1.2 H (0.9-1.1) APTT 25.0 (23.6-32.8) sec VBG Lactate 1.1 (0.6-1.4) mmol/L Sodium (136-145) mmol/L Potassium (3.5-5.1) mmol/L Chloride (98-107) mmol/L Carbon Dioxide (21.0-32.0) mmol/L Anion Gap (3-11) mmol/L BUN (7-18) mg/dL Creatinine (0.55-1.02) mg/dL Est GFR (CKD-EPI 2021) (mL/min/1.73m2) Glucose (74-106) mg/dL Calcium (8.5-10.1) mg/dL Magnesium (1.8-2.4) mg/dL Total Bilirubin (0.2-1.0) mg/dL AST (15-37) U/L ALT (14-59) U/L Alkaline Phosphatase (46-116) U/L Troponin I (<or=51) ng/L NT-Pro-B Natriuret Pep (<300) pg/mL Total Protein (6.4-8.2) g/dL Albumin (3.4-5.0) g/dL Amylase (25-115) U/L Lipase (16-77) U/L TSH (0.36-3.74) uIU/mL Urine Color Yellow (Yellow) Urine Clarity Cloudy (Clear) Urine pH 5.5 (5-8) Ur Specific [place] 1.020 (1.005-1.025) Urine Protein 30 H (Neg-Trace) mg/dL Urine Ketones Negative (Negative) mg/dL Urine Blood Moderate H (Negative) Urine Nitrite Negative (Negative) Urine Bilirubin Negative (Negative) Urine Urobilinogen 0.2 (Up to 0.2) mg/dL Ur Leukocyte Esterase Small H (Negative) Urine RBC 0-2 (0-2) HPF Urine WBC >50 H (0-5) HPF Ur Epithelial Cells Few (Negative) HPF Urine Crystals Negative (Negative) HPF Urine Bacteria Many (Negative) HPF Urine Casts Negative (Negative) LPF Urine Mucus Negative (Negative) Ur Culture Indicated? Yes Urine Glucose Negative (Negative) mg/dL COVID-19 Source SARS-CoV-2 (PCR) (Negative) ABO/Rh O Positive Antibody Screen NEGATIVE Crossmatch See Detail 08/24/24 Range/Units 11:20 WBC 11.32 H (4.4-10.8) 10^3/uL RBC 2.72 L (3.93-5.22) 10^6/uL Hgb 7.5 L (11.2-15.7) g/dL Hct 24.1 L (36.0-46.0) % MCV 89 (80-95) fL MCH 27.6 (27.0-33.0) pg MCHC 31.1 L (32.0-36.0) % RDW 16.4 H (11.7-14.6) % Plt Count 271 (130-400) 10^3/uL MPV 9.2 (8.0-11.0) fL Immature Gran % 0.6 % Neutrophils % 83.3 % Lymphocytes % 8.4 % Monocytes % 7.0 % Eosinophils % 0.3 % Basophils % 0.4 % Nucleated RBC % 0.0 (0.0-0.3) % Absolute Neutrophils 9.43 H (1.2-6.7) 10^3/uL Absolute Lymphocytes 0.95 L (1.2-3.4) 10^3/uL Absolute Monocytes 0.79 (0.1-0.8) 10^3/uL Absolute Eosinophils 0.03 (0.0-0.7) 10^3/uL Absolute Basophils 0.05 (0.0-0.2) 10^3/uL PT (9.1-11.1) sec INR (0.9-1.1) APTT (23.6-32.8) sec VBG Lactate (0.6-1.4) mmol/L Sodium 138 (136-145) mmol/L Potassium 4.0 (3.5-5.1) mmol/L Chloride 108 H (98-107) mmol/L Carbon Dioxide 21.9 (21.0-32.0) mmol/L Anion Gap 8.1 (3-11) mmol/L BUN 23 H (7-18) mg/dL Creatinine 1.8 H (0.55-1.02) mg/dL Est GFR (CKD-EPI 2020) 27.44 (mL/min/1.73m2) Glucose 121 H (74-106) mg/dL Calcium 8.6 (8.5-10.1) mg/dL Magnesium 2.0 (1.8-2.4) mg/dL Total Bilirubin 0.44 (0.2-1.0) mg/dL AST 24 (15-37) U/L ALT 29 (14-59) U/L Alkaline Phosphatase 90 (46-116) U/L Troponin I 6 (<or=51) ng/L NT-Pro-B Natriuret Pep 953 H (<300) pg/mL Total Protein 6.1 L (6.4-8.2) g/dL Albumin 1.7 L (3.4-5.0) g/dL Amylase 52 (25-115) U/L Lipase 23 (16-77) U/L TSH 0.70 (0.36-3.74) uIU/mL Urine Color (Yellow) Urine Clarity (Clear) Urine pH (5-8) Ur Specific [place] (1.005-1.025) Urine Protein (Neg-Trace) mg/dL Urine Ketones (Negative) mg/dL Urine Blood (Negative) Urine Nitrite (Negative) Urine Bilirubin (Negative) Urine Urobilinogen (Up to 0.2) mg/dL Ur Leukocyte Esterase (Negative) Urine RBC (0-2) HPF Urine WBC (0-5) HPF Ur Epithelial Cells (Negative) HPF Urine Crystals (Negative) HPF Urine Bacteria (Negative) HPF Urine Casts (Negative) LPF Urine Mucus (Negative) Ur Culture Indicated? Urine Glucose (Negative) mg/dL COVID-19 Source SARS-CoV-2 (PCR) (Negative) ABO/Rh Antibody Screen Crossmatch 08/24/24 15:15 Blood Culture - Pending Blood 08/24/24 15:25 Blood Culture - Pending Blood 08/24/24 13:35 Urine Culture - Pending Urine - Reflex from Ua Intake and Output - 24 Hour Total 08/24/24 10:01 thru 08/24/24 20:18 Intake Total 420 Balance 420 Weight 57.7 kg Intake: IV 70 Blood Product 350 Rbc Leuko Reduced Unit 350 [id number] Other: # Bowel Movements 1 Falls Risk Assessment History of Falls No History 08/24/24 10:14 Contributing Factors No Factors 08/24/24 10:14 Ambulatory Aids Independent 08/24/24 10:14 Tubes/Lines None 08/24/24 10:14 Gait Evaluation No gait disturbance 08/24/24 10:14 Cognition No cognitive impairment 08/24/24 10:14 Fall Total Score 0 08/24/24 10:14 Level of Risk Standard/Low Risk 08/24/24 10:14 Problems (Last Reviewed 08/24/24 @ 19:15 by Toby Castaneda) Mass of cecum (Acute) Anemia (Chronic) Acute thromboembolism of iliac vein (Acute) Pulmonary emboli (Chronic) Notes 08/24/24 20:18 Nursing Notes by Daniel Flores Pt has hematechezia. Has known ulcer. Had a stool when on external urinary catheter device, that was drawn into device. Noticed this when I took over care and performed bedside assessment on pt. Pt blood products had been finished for some time, reported by previous RN. This was DC'd. Pt has orders for DVT protocol heparin bolus then infusion per protocol. Provider notified of stool, came into room and viewed this. Would still like Heparin protocol followed and stated we would keep close eye on vitals and would discuss with hospitalist. Provider confirmed order. Heparin initiated per order. Education provided to pt to monitor her stools as well when she goes to the floor. be reported to floor RN. Daniel Flores Nursing Note: Initialized on 08/24/24 20:18 - END OF NOTE v v v v v v v v v Sending and/or Receiving Nurses: Please use comment section below to note any information pertinent to the patient hand-off not included above. Information / Comments: Report recieved Pt going to room 225. Report received from: Stevenson Flores RN at 0917
[2024-08-24] MEDS: Normal Saline Flush 10 ML SYR IVP ×3 (22:02→23:48)
[2024-08-24 22:46] LABS: HCT 27.3 % (36.0-46.0); MCH 26.6 pg (27.0-33.0); MCHC 31.9 % (32.0-36.0); MCV 84 fL (80-95); MPV 9.1 fL (8.0-11.0); Platelet Count 257 10^3/uL (130-400); RBC 3.27 10^6/uL (3.93-5.22); RDW 19.5 % (11.7-14.6); RDW-SD 58.7 fL
[2024-08-24 22:59] LABS: HGB 8.7 g/dL (11.2-15.7)
[2024-08-24] MEDS: Pantoprazole 40 MG VIAL IVP (23:10)
[2024-08-24] MEDS: PIPERACILLIN/TAZO 2.25 GM in Normal Saline 50 ML IVPB (23:48)
[2024-08-25 03:20] VITALS: BP 115/50; PULSE 62; RESP 17; TEMP 36; O2SAT 96
[2024-08-25] MEDS: Normal Saline Flush 10 ML SYR IVP ×2 (06:01→08:22)
[2024-08-25] MEDS: PIPERACILLIN/TAZO 2.25 GM in Normal Saline 50 ML IVPB ×2 (06:02→11:45)
[2024-08-25 07:24] VITALS: BP 119/49; PULSE 63; RESP 14; TEMP 36.4; O2SAT 98
[2024-08-25 07:41] LABS: ALT 22 U/L (14-59); AST 16 U/L (15-37); Albumin 1.8 g/dL (3.4-5.0); Alkaline Phosphatase 82 U/L (46-116); Anion Gap 11.8 mmol/L (3-11); BUN 21 mg/dL (7-18); Bilirubin, Total 0.96 mg/dL (0.2-1.0); CO2 22.2 mmol/L (21.0-32.0); CREATININE 1.6 mg/dL (0.55-1.02); Calcium 8.8 mg/dL (8.5-10.1); Chloride 107 mmol/L (98-107); Estimated GFR 31.61 (mL/min/1.73m2); Glucose 93 mg/dL (74-106); Magnesium 2.1 mg/dL (1.8-2.4); Potassium 3.9 mmol/L (3.5-5.1); Sodium 141 mmol/L (136-145); Total Protein 5.9 g/dL (6.4-8.2)
[2024-08-25] MEDS: Losartan 25 MG TAB 50 MG PO (08:17)
[2024-08-25] MEDS: Cholecalciferol (Vitamin D3) 1,000 UNIT TAB 1000 UNITS PO (08:17)
[2024-08-25] MEDS: Sucralfate 1 GM TAB PO (08:17)
[2024-08-25] MEDS: Oxybutynin-CR 5 MG TABCR PO (08:17)
[2024-08-25] MEDS: Ferrous Sulfate 325 MG TAB PO (08:17)
[2024-08-25] MEDS: Refresh PLUS Eye Drops 0.4ml OP (08:18)
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
[2024-08-25 11:20] VITALS: BP 122/55; PULSE 62; RESP 14; TEMP 36.7; O2SAT 97
--- NOTE | 2024-08-25 12:54 | PHACLINREV_ITS ---
Pharmacy Admission Review Admission Clinical Review Admission Pharmacy Review: Mass of cecum (Acute) Acute thromboembolism of iliac vein (Acute) Pulmonary emboli (Acute) amlodipine Allergy (Intermediate, Verified 08/24/24 10:17) SWELLING THROAT loratadine Allergy (Mild, Verified 08/24/24 10:17) HIVES rabeprazole Allergy (Unknown, Verified 08/24/24 10:17) Unknown shrimp Allergy (Verified 08/24/24 10:17) Other (See Comment) chlorthalidone Adverse Reaction (Intermediate, Verified 08/24/24 10:17) Headache and general unwellness latex Adverse Reaction (Intermediate, Verified 08/24/24 10:17) Skin Rash codeine Adverse Reaction (Mild, Verified 08/24/24 10:17) SEVERE STOMACH PAIN lisinopril Adverse Reaction (Mild, Verified 08/24/24 10:17) COUGH onions Allergy (Uncoded 08/24/24 10:17) sneeze Resuscitation Status DNR Height 5 ft 2 in Weight 56.6 kg Comments Comments/Follow Ups: Plan to transfer to [facility] or [facility] pending bed availability Pharmacy Admission Review Renal Dosing Renal Dosing: BUN 21 mg/dL (7-18) H 08/25/24 06:26 Creatinine 1.6 mg/dL (0.55-1.02) H 08/25/24 06:26 Medications needing adjustments: Reviewed (CrCl 22.95 mL/min, BUN decreased from 23 and SCr decreased from 1.8) List of meds needing interventions: Current medications are okay Anticoagulation Anticoagulation: Hgb 8.7 g/dL (11.2-15.7) L 08/24/24 22:40 Hct 27.3 % (36.0-46.0) L 08/24/24 22:40 Plt Count 257 10^3/uL (130-400) 08/24/24 22:40 INR 1.2 (0.9-1.1) H 08/24/24 19:37 Creatinine 1.6 mg/dL (0.55-1.02) H 08/25/24 06:26 Therapeutic Anticoagulation: Reviewed (last aPTT was 103 at 1000, rate was decreased from 8.5 to 7.5mL/hr) Medications: Heparin (7.5mL/hr) Relevant Labs Relevant Labs: Sodium 141 mmol/L (136-145) 08/25/24 06:26 Potassium 3.9 mmol/L (3.5-5.1) 08/25/24 06:26 Chloride 107 mmol/L (98-107) 08/25/24 06:26 Magnesium 2.1 mg/dL (1.8-2.4) 08/25/24 06:26 Electrolytes, C-Reactive P, ESR: Reviewed Cardiac Review Cardiac Review: Troponin I 6 ng/L (<or=51) 08/24/24 11:20 NT-Pro-B Natriuret Pep 953 pg/mL (<300) H 08/24/24 11:20 Blood Pressure 122/55 1120 Blood Pressure 119/49 0724 Blood Pressure 115/50 0320 BP, HR, EF%: Reviewed (HR WNL) List meds needing interventions: Has order for losartan 50mg daily QTc Review QTc: Reviewed (422 from 03/19/24 - most recent EKG on file) IV to PO Switch IV Medications: Reviewed (heparin, pantoprazole and Zosyn) Home Meds Home Med List reviewed: Intervened Relevent Home Meds Not ordered & why?: clopidogrel (on hold), omeprazole (has order for IV pantoprazole) and spironolactone Spoke with provider regarding spironolactone during morning meeting. Per provider is currently being held. Current Meds Current Medication Order Review: Reviewed Pharmacy Antibiotic Review Relevant Labs: WBC 10.60 10^3/uL (4.4-10.8) 08/24/24 22:40 Temperature 36.7 C Temperature 36.4 C Temperature 36.0 C Pharmacy Antibiotic Activity: C/S review and Reviewed, no change Comments: Patient is on Zosyn, renally adjusted, day 1. Blood and urine cultures are pending. Comments Comments/Follow Ups: Plan to transfer to [facility] or [facility] pending bed availability
--- NOTE | 2024-08-25 13:12 | CHAPLAIN ---
Roselyn was resting in bed when I visited. She told me that she is waiting to be transferred to [facility]. Her daughter and a friend were with her. Roselyn said she's comfortable and that she's got God and my with me. She explained that her late visited her and she found that very comforting. She is NPO at the moment and getting hungry. I gave her a prayer shawl. She asked me to say prayers for her. Roselyn is originally from [place] and came to [place] to her .
[2024-08-25 15:19] VITALS: BP 125/48; PULSE 65; RESP 15; TEMP 36.6; O2SAT 98
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
[2024-08-25 17:07] LABS: PTT Activated 84.6 sec (23.6-32.8)
--- NOTE | 2024-08-25 17:30 | W.PC.ACHO ---
Registration Status: Primary Language: Preferred Language: ED Information & Data Chief Complaint Abd Prob 08/24/24 15:48 Triage Note patient here with abdominal 08/24/24 10:10 pain LRQ (since 2022), is losing weight, poor po intake (Does not have dx after workup by pcp), has scheduled CT of abdomen on . Patient has diarrhea frequently. Patient is nauseous. Pain is always there. Medical / Surgical History (Last Reviewed 08/24/24 @ 19:15 by Toby Castaneda) SOB (shortness of breath) Alternating constipation and diarrhea Colonic diverticular abscess Generalized osteoarthrosis (Last Reviewed 08/24/24 @ 19:15 by Toby Castaneda) Hemorrhoidal Banding (02/17/18) Colonoscopy - MAC (02/17/18) Colonoscopy - IV Sedation Cholecystectomy (~1965) Extraction of cataract Appendectomy Most Recent Vital Signs Temperature 36.6 C 08/25/24 15:19 Temperature Source Skin 08/25/24 15:19 Pulse 65 08/25/24 15:19 Pulse Rhythm Regular 08/24/24 21:46 Pulse 69 08/24/24 21:10 Respiratory Rate 15 08/25/24 15:19 Respiratory Effort Normal, Non-Labored 08/24/24 21:46 Respiratory Depth Normal 08/24/24 21:46 Respiratory Pattern Normal 08/24/24 21:46 Blood Pressure 125/48 L 08/25/24 15:19 Blood Pressure Mean 84 08/24/24 21:01 Blood Pressure Position Sitting 08/24/24 10:10 Pulse Oximetry 98 08/25/24 15:19 Oxygen Delivery Method Room Air 08/25/24 15:19 Oxygen Flow Rate 0 08/25/24 15:19 Pain Level 0 08/25/24 13:55 Comment Tightness in abdomen 08/25/24 07:24 Allergies amlodipine Allergy (Intermediate, Verified 08/24/24 10:17) SWELLING THROAT loratadine Allergy (Mild, Verified 08/24/24 10:17) HIVES rabeprazole Allergy (Unknown, Verified 08/24/24 10:17) Unknown unknown shrimp Allergy (Verified 08/24/24 10:17) Other (See Comment) Throat swelling, per pt. chlorthalidone Adverse Reaction (Intermediate, Verified 08/24/24 10:17) Headache and general unwellness latex Adverse Reaction (Intermediate, Verified 08/24/24 10:17) Skin Rash codeine Adverse Reaction (Mild, Verified 08/24/24 10:17) SEVERE STOMACH PAIN lisinopril Adverse Reaction (Mild, Verified 08/24/24 10:17) COUGH onions Allergy (Uncoded 08/24/24 10:17) sneeze and spice Precautions Isolation Standard precaution 08/24/24 10:14 IV IV Catheter Type [Right Peripheral IV Antecubital] IV Catheter Type [Left Saline Lock Antecubital] IV Catheter Gauge [Left 18 Antecubital] Diagnostics 08/25/24 08/25/24 08/25/24 Range/Units 16:45 10:05 06:26 WBC (4.4-10.8) 10^3/uL RBC (3.93-5.22) 10^6/uL Hgb (11.2-15.7) g/dL Hct (36.0-46.0) % MCV (80-95) fL MCH (27.0-33.0) pg MCHC (32.0-36.0) % RDW (11.7-14.6) % Plt Count (130-400) 10^3/uL MPV (8.0-11.0) fL Immature Gran % % Neutrophils % % Lymphocytes % % Monocytes % % Eosinophils % % Basophils % % Nucleated RBC % (0.0-0.3) % Absolute Neutrophils (1.2-6.7) 10^3/uL Absolute Lymphocytes (1.2-3.4) 10^3/uL Absolute Monocytes (0.1-0.8) 10^3/uL Absolute Eosinophils (0.0-0.7) 10^3/uL Absolute Basophils (0.0-0.2) 10^3/uL PT (9.1-11.1) sec INR (0.9-1.1) APTT 84.6 H* 105.0 H* (23.6-32.8) sec Sodium 141 (136-145) mmol/L Potassium 3.9 (3.5-5.1) mmol/L Chloride 107 (98-107) mmol/L Carbon Dioxide 22.2 (21.0-32.0) mmol/L Anion Gap 11.8 H (3-11) mmol/L BUN 21 H (7-18) mg/dL Creatinine 1.6 H (0.55-1.02) mg/dL Est GFR (CKD-EPI 2020) 31.61 (mL/min/1.73m2) Glucose 93 (74-106) mg/dL Calcium 8.8 (8.5-10.1) mg/dL Magnesium 2.1 (1.8-2.4) mg/dL Total Bilirubin 0.96 (0.2-1.0) mg/dL AST 16 (15-37) U/L ALT 22 (14-59) U/L Alkaline Phosphatase 82 (46-116) U/L Total Protein 5.9 L (6.4-8.2) g/dL Albumin 1.8 L (3.4-5.0) g/dL COVID-19 Source SARS-CoV-2 (PCR) (Negative) Crossmatch 08/25/24 08/24/24 08/24/24 Range/Units 01:45 22:40 20:07 WBC 10.60 9.47 (4.4-10.8) 10^3/uL RBC 3.27 L 3.10 L (3.93-5.22) 10^6/uL Hgb 8.7 L 8.2 L (11.2-15.7) g/dL Hct 27.3 L 25.8 L (36.0-46.0) % MCV 84 83 D (80-95) fL MCH 26.6 L 26.5 L (27.0-33.0) pg MCHC 31.9 L 31.8 L (32.0-36.0) % RDW 19.5 H 19.2 H (11.7-14.6) % Plt Count 257 240 (130-400) 10^3/uL MPV 9.1 8.9 (8.0-11.0) fL Immature Gran % 1.0 % Neutrophils % 75.3 % Lymphocytes % 15.2 % Monocytes % 7.2 % Eosinophils % 0.8 % Basophils % 0.5 % Nucleated RBC % 0.0 (0.0-0.3) % Absolute Neutrophils 7.13 H (1.2-6.7) 10^3/uL Absolute Lymphocytes 1.44 (1.2-3.4) 10^3/uL Absolute Monocytes 0.68 (0.1-0.8) 10^3/uL Absolute Eosinophils 0.08 (0.0-0.7) 10^3/uL Absolute Basophils 0.05 (0.0-0.2) 10^3/uL PT (9.1-11.1) sec INR (0.9-1.1) APTT 130.0 H* (23.6-32.8) sec Sodium (136-145) mmol/L Potassium (3.5-5.1) mmol/L Chloride (98-107) mmol/L Carbon Dioxide (21.0-32.0) mmol/L Anion Gap (3-11) mmol/L BUN (7-18) mg/dL Creatinine (0.55-1.02) mg/dL Est GFR (CKD-EPI 2020) (mL/min/1.73m2) Glucose (74-106) mg/dL Calcium (8.5-10.1) mg/dL Magnesium (1.8-2.4) mg/dL Total Bilirubin (0.2-1.0) mg/dL AST (15-37) U/L ALT (14-59) U/L Alkaline Phosphatase (46-116) U/L Total Protein (6.4-8.2) g/dL Albumin (3.4-5.0) g/dL COVID-19 Source SARS-CoV-2 (PCR) (Negative) Crossmatch 08/24/24 08/24/24 08/24/24 Range/Units 19:50 19:37 15:15 WBC (4.4-10.8) 10^3/uL RBC (3.93-5.22) 10^6/uL Hgb (11.2-15.7) g/dL Hct (36.0-46.0) % MCV (80-95) fL MCH (27.0-33.0) pg MCHC (32.0-36.0) % RDW (11.7-14.6) % Plt Count (130-400) 10^3/uL MPV (8.0-11.0) fL Immature Gran % % Neutrophils % % Lymphocytes % % Monocytes % % Eosinophils % % Basophils % % Nucleated RBC % (0.0-0.3) % Absolute Neutrophils (1.2-6.7) 10^3/uL Absolute Lymphocytes (1.2-3.4) 10^3/uL Absolute Monocytes (0.1-0.8) 10^3/uL Absolute Eosinophils (0.0-0.7) 10^3/uL Absolute Basophils (0.0-0.2) 10^3/uL PT 12.1 H (9.1-11.1) sec INR 1.2 H (0.9-1.1) APTT 25.0 (23.6-32.8) sec Sodium (136-145) mmol/L Potassium (3.5-5.1) mmol/L Chloride (98-107) mmol/L Carbon Dioxide (21.0-32.0) mmol/L Anion Gap (3-11) mmol/L BUN (7-18) mg/dL Creatinine (0.55-1.02) mg/dL Est GFR (CKD-EPI 2020) (mL/min/1.73m2) Glucose (74-106) mg/dL Calcium (8.5-10.1) mg/dL Magnesium (1.8-2.4) mg/dL Total Bilirubin (0.2-1.0) mg/dL AST (15-37) U/L ALT (14-59) U/L Alkaline Phosphatase (46-116) U/L Total Protein (6.4-8.2) g/dL Albumin (3.4-5.0) g/dL COVID-19 Source Nasal/Nares SARS-CoV-2 (PCR) Negative (Negative) Crossmatch See Detail 08/24/24 13:35 Urine Culture - Preliminary Urine - Reflex from Ua Gram Negative Tom 08/24/24 15:15 Blood Culture - Pending Blood 08/24/24 15:25 Blood Culture - Pending Blood Intake and Output - 24 Hour Total 08/24/24 10:01 thru 08/25/24 14:18 Intake Total 701.408 Output Total 300 Balance 401.408 Weight 56.6 kg Intake: IV 351.408 Blood Product 350 Rbc Leuko Reduced Unit 350 [id number] Output: Urine 300 Other: Urine Color Yellow Urine Appearance Clear Urine Odor Normal Comment pT reports she has voided independently, multiple times over night. Stool Size Small Stool Characteristics Brown # Bowel Movements 1 Falls Risk Assessment History of Falls No History 08/24/24 21:46 Contributing Factors No Factors 08/24/24 21:46 Ambulatory Aids Independent 08/24/24 21:46 Tubes/Lines W/no contributing factors 08/24/24 21:46 Gait Evaluation No gait disturbance 08/24/24 21:46 Cognition No cognitive impairment 08/24/24 21:46 Fall Total Score 10 08/24/24 21:46 Level of Risk Standard/Low Risk 08/24/24 21:46 Problems (Last Reviewed 08/24/24 @ 19:15 by Toby Castaneda) Mass of cecum (Acute) Anemia (Chronic) Acute thromboembolism of iliac vein (Acute) Pulmonary emboli (Acute) Notes 08/24/24 20:18 Nursing Notes by Daniel Flores Pt has hematechezia. Has known ulcer. Had a stool when on external urinary catheter device, that was drawn into device. Noticed this when I took over care and performed bedside assessment on pt. Pt blood products had been finished for some time, reported by previous RN. This was DC'd. Pt has orders for DVT protocol heparin bolus then infusion per protocol. Provider notified of stool, came into room and viewed this. Would still like Heparin protocol followed and stated we would keep close eye on vitals and would discuss with hospitalist. Provider confirmed order. Heparin initiated per order. Education provided to pt to monitor her stools as well when she goes to the floor. be reported to floor RN. Daniel Flores Nursing Note: Initialized on 08/24/24 20:18 - END OF NOTE v v v v v v v v v Sending and/or Receiving Nurses: Please use comment section below to note any information pertinent to the patient hand-off not included above. Information / Comments: report given to Jessica OSBORN at [facility] at 1730 from Kayleigh Velasco RN. Pt left floor on stretcher with [place] Report received from:
--- NOTE | 2024-09-02 11:03 | NUR.NOTE ---
Nursing Note: Accessed chart to review nursing documentation related to [facility] report.
== END 2024-08-25 17:19 | disposition short-term general hospital (02) | DRG 176 ==
LOC: ER 19:50 → MS 21:37
PROVIDERS: Family Medicine; Physician Assistant; Admitting Provider Family Medicine; Emergency Provider Physician Assistant; PCP Nurse Practitioner Family; Visit Provider Family Medicine
DX: I26.94 Multiple subsegmental thrombotic pulmonary emboli without acute cor pulmonale (principal); I82.422 Acute embolism and thrombosis of left iliac vein; K63.89 Other specified diseases of intestine; D50.0 Iron deficiency anemia secondary to blood loss (chronic); R63.4 Abnormal weight loss; Z68.20 Body mass index [BMI] 20.0-20.9, adult; Z79.02 Long term (current) use of antithrombotics/antiplatelets; N18.32 Chronic kidney disease, stage 3b; Z66 Do not resuscitate; K29.70 Gastritis, unspecified, without bleeding; K57.30 Diverticulosis of large intestine without perforation or abscess without bleeding; M15.9 Polyosteoarthritis, unspecified; I12.9 Hypertensive chronic kidney disease with stage 1 through stage 4 chronic kidney disease, or unspecified chronic kidney disease; K76.0 Fatty (change of) liver, not elsewhere classified; K27.9 Peptic ulcer, site unspecified, unspecified as acute or chronic, without hemorrhage or perforation
CPT/HCPCS: 00123; 36410; 36415; 36430; 74177; 80053; 83690; 85027; 86850; 86900; 86901; 86920; 87040; 87077; 87635; 96365; 96366; 96367; 99291; 71260; 81003; 81015; 82150; 83605; 83735; 83880; 84443; 84484; 85025; 85610; 85730; 87086; 87186; 99223; 99239; J1644; J2470; J2543; P9016; Q9967